=== PATIENT | male | born 1960 | race Caucasian/White ===

== ENCOUNTER → 2017-01-30 | Outpatient (CLI) | payer OTHER ==
[~2017-01-30] MED LIST: ASPI-664 PO; CLOP75TA27 PO
--- NOTE | 2017-01-30 18:07 | RADRPT ---
PROCEDURE: XR Right hip and pelvis. CLINICAL INDICATION: Right hip pain. Pelvic pain. TECHNIQUE: Two views. Frontal pelvis and lateral right hip. COMPARISON: No prior studies are available for comparison. FINDINGS: There is no fracture or dislocation. The soft tissues are normal. There are degenerative changes of the right hip with joint space narrowing, osteophytes, and subarti cular sclerosis. There is probable right femoral head avascular necrosis with sclerosis of the supe rior femoral head and a probable subchondral fracture. The left hip is grossly normal. There is no lytic or blastic lesion. The upper pelvis is not completely included on the image. IMPRESSION: 1. Moderate degenerative changes of the right hip. 2. Probable right femoral head avascular necrosis with sclerosis of the superior femoral head and p robable subchondral fracture. 3. Grossly normal appearance of the left hip and pelvis. RPTAT: QQ .Elvis Ontiveros MD, Date Time Electronically viewed and signed by .Elvis Ontiveros MD, on 01/30/2017 18:06 .R/
--- NOTE | 2017-02-11 05:01 | HKNOTE ---
DATE OF SERVICE: 01/30/2017 MAIN COMPLAINT: Pain in the right hip. HISTORY OF MAIN COMPLAINT: The patient is a 56-year-old male, who complains of pain in his right groin. He has had the pain for about four years. The problem seems to have started when he jumped off the back of a truck four years ago. He has seen three different physicians for this problem (None orthopedic), who thought the pain was coming from his back. Finally, he was diagnosed at [facility] as having osteonecrosis of his right hip. He was seen in the emergency room and evaluated for his right hip and lower back. He was given a prescription for [place] on 01/13/2017. He is referred for further evaluation and treatment. The patient complains the pain is mainly in the right groin, but he also has some pain in the lower back and in the right leg. Pain is described as mostly severe but occasionally moderate. The pain has been particularly severe this past six months. The pain is aggravated by walking, weightbearing and stair climbing. He does get rest pain and night pain. His pain is aggravated by walking, weightbearing and stair climbing. He does get rest pain and night pain. He gets back pain and he also gets numbness and tingling in the right leg. On a level surface, he can walk no more than 200 yards without stopping and using a walker. He limps some of the time. He does not have a shoe lift. He can clip his toenails and tie his shoelaces. PAST ORTHOPEDIC HISTORY: Orthopedic operations: None. PRIOR CORTISONE INTAKE: Prior cortisone intake: None. Importantly, the patient does not have a history of cortisone intake or use. Note also that he is "not heavy on alcohol." He takes 1-2 drinks a month. OTHER JOINT PROBLEMS: Other joint problems: None. BLOOD TESTS FOR ARTHRITIS: None. PRIOR INJURIES TO HIPS OR KNEES: The patient had a conveyer belt injury (no date given) when he injured his right foot. WORK STATUS: The patient's work involves heavy lifting, working with heavy tools, and multiple other activities which require fairly severe effort. Noted the patient was laid off from his work 8 months ago. PAST MEDICAL HISTORY: 1. Hypertension. 2. "Heart problems." 3. History of a gastric bleed in which he was given two units of blood. (1 year ago). 4. Hypercholesterolemia. PAST SURGICAL HISTORY: Negative. ALLERGIES: SULFA. MEDICATIONS: 1. Lipitor. 2. Cozaar. 3. Toprol XL. 4. Niacin. 5. Protonix. PHYSICAL EXAMINATION: GENERAL: The patient is a fairly youthful, 56-year-old male, quite markedly overweight. VITAL SIGNS: Vital signs: Height 6 foot 1 inch, weight 169 pounds. Blood pressure 150/110, temperature 98.7. EXTREMITIES: The patient walks without any support but he has quite a severe antalgic gait. NEUROLOGICAL: Deep tendon reflexes are symmetrical. Straight leg raise test is negative bilaterally at 80 degrees. ORTHOPEDIC EXAMINATION: Examination of the right hip: Range of motion is markedly limited. Flexion is 100 degrees. External rotation. Approximately 25 degrees and causes him severe groin pain. Internal rotation 0 degrees, abduction 20 degrees, adduction 20 degrees. Severe pain at all limits of motion. Examination of the left hip: Full range of motion without pain and without tenderness anywhere around the hip. Knee examination: Both knees are clinically normal. IMAGING: Plain x-rays of the right hip obtained on 01/13/2017 were reviewed. The right hip shows classic osteonecrosis of the femoral head with a wedge of necrosis and partial collapse of the femoral head. Some secondary osteoarthritic changes are noted. Imaging of the left hip joint shows normal femoral head. DIAGNOSIS: 1. Severe symptomatic osteonecrosis of the right hip. 2. Symptoms of right-sided sciatica. 3. History of gastric bleed and transfusion. 4. Hypertension. 5. Possibly other heart problems. 6. ALLERGIC TO SULFA. MANAGEMENT: The patient was advised that if he would definitely need to undergo a right hip replacement in the fairly near future. No harm would come to him from delaying by a few months if he has to, but the sooner he does the surgery, the better. The surgery of total hip replacement was discussed with him in a fair amount of detail including details about the anterior hip approach, possible postoperative complications, the technique of performing the operation, the hospital stay, and post hospital care. The patient is given a copy of my booklet, "Hip arthritis and hip replacement surgery", and was referred to my web site, "[email or web address]". The patient will call when he is ready to proceed with hip replacement surgery. Footnote: The patient is going to have a spine consultation next week with Dr. Vernon Lebron. The patient will call when he is ready to proceed with surgery. He is given a prescription for tramadol 50 mg 3 times a day. Dictated By: Red Allison MD /rowdy/jimmy /Document#: [id number]
== END | disposition home or self-care (01) ==
LOC: HKI 15:25
DX: M87.850 Other osteonecrosis, pelvis (principal); I10 Essential (primary) hypertension; M54.31 Sciatica, right side; Z88.2 Allergy status to sulfonamides
CPT/HCPCS: 73502; Z7500; G0463

== ENCOUNTER → 2017-04-03 | Outpatient (CLI) | payer OTHER ==
--- NOTE | 2017-04-04 07:46 | HKNOTE ---
DATE OF SERVICE: 04/03/2017 CHIEF COMPLAINT: Right groin pain. HISTORY OF PRESENT ILLNESS: The patient is a 57-year-old male, who is complaining of severe pain in the right groin radiating to the right knee. The pain is constant. It has been worsening over the last 2 years. He has difficulty performing his activities of daily living. He has difficulty performing his job. He has taken pain medications and physical therapy without any pain relief. He was scheduled to have a right total hip arthroplasty by Dr. Allison. He is taking [place] for pain control. He denies any back pain. Gait, antalgic gait. No use of assistive devices. Right hip flexion 0-0 to 90 degrees of flexion, 30 degrees of external rotation, 0 degrees of internal rotation, abduction of 20 degrees. Limitation of pain in all motions. Examination of left hip full range of motion without pain. Knee exam, both knees are clinically normal. X-rays of right hip: Two views of the right hip demonstrate osteonecrosis of the femoral head with collapse. There is secondary degenerative changes. IMPRESSION: The patient is a 57-year-old male with right hip osteonecrosis. PLAN: Patient would like to proceed with surgical intervention. He has failed nonoperative management. He will be scheduled for a right anterior total hip arthroplasty. He will return prior to surgery for consent. He will require preoperative clearance. Dictated By: Jose Melton MD /rowdy/shaheen /Document#: [id number]
== END | disposition home or self-care (01) ==
LOC: HKI 13:49
PROVIDERS: ATTEND Orthopaedic Surgery Adult Reconstructive Orthopaedic Surgery
DX: M87.850 Other osteonecrosis, pelvis (principal)
CPT/HCPCS: G0463

== ENCOUNTER → 2017-04-21 | Outpatient (CLI) | payer OTHER ==
--- NOTE | 2017-04-22 07:11 | HKNOTE ---
DATE OF SERVICE: 04/21/2017 CHIEF COMPLAINT: Right groin pain. HISTORY OF PRESENT ILLNESS: This is a 57-year-old male with right hip avascular necrosis who is riccardo eduled to undergo right total hip arthroplasty on 05/07/2017. He is here for an evaluation. He sta ivet that he continues to have pain in the right groin radiating to the knee. He has difficulty ambu lating and performing his activities of daily living. He is also having pain in his low back. He i s scheduled to have lumbar epidural injection. He has no other complaints. GAIT: Antalgic gait. No use of assistive device. RIGHT HIP EXAMINATION: 0 to 80 degrees range of motion, 30 degrees of external rotation, 5 degrees of internal rotation, positive Stinchfield, positive Ambrosio's, positive straight leg raise. X-RAYS RIGHT HIP: Two views of the right hip demonstrate AVN of the femoral head. There is minimal collapse. There is also degenerative changes. IMPRESSION: A 57-year-old male with right hip avascular necrosis with degenerative changes. PLAN: He would like to proceed with right total hip arthroplasty on 05/07/2017. I discussed the ri sks with surgery which include but are not limited to infection, deep venous thrombosis, pulmonary e mbolism, damage to neurovascular structures requiring repair, wound healing problems, leg length dis crepancy, fracture, loosening of prosthesis, need for revision surgery, wear of prosthesis, heart at tack, stroke, need for blood transfusion and even . I also advised him to not have the epidura l injection prior to his surgery. He will follow up on 05/06/2017 for preoperative evaluation. Dictated By: BARBIE ELMORE/ELEONORA Conf#: [id number] DID#: [id number]
== END | disposition home or self-care (01) ==
LOC: HKI 10:43
PROVIDERS: ATTEND Orthopaedic Surgery Adult Reconstructive Orthopaedic Surgery
DX: M87.850 Other osteonecrosis, pelvis (principal); M54.5 Low back pain
CPT/HCPCS: G0463

== ENCOUNTER → 2017-09-22 | Outpatient (CLI) | END | disposition home or self-care (01) ==

== ENCOUNTER 2017-09-24 07:22 | Inpatient (IN) | END 2017-09-26 17:10 | disposition home health service (06) | DRG 470 ==

== ENCOUNTER → 2017-10-10 | Outpatient (CLI) | END | disposition home or self-care (01) ==

== ENCOUNTER → 2017-11-04 | Outpatient (CLI) | END | disposition home or self-care (01) ==

== ENCOUNTER → 2017-12-26 | Outpatient (CLI) | END | disposition home or self-care (01) ==

== ENCOUNTER → 2018-03-27 | Outpatient (CLI) | END | disposition home or self-care (01) ==

== ENCOUNTER 2018-11-04 09:46 | Inpatient (IN) | payer OTHER ==
--- NOTE | 2018-11-03 20:46 | PREOPHP ---
DATE OF ADMISSION: 11/04/2018 HISTORY OF PRESENT ILLNESS: The patient is a 58-year-old male who was originally seen in the office for evaluation of back pain, hip pain and leg pain. The patient was diagnosed with lumbar 5 sacral 1 spondylolisthesis with a mechanical low back pain. He received physical therapy. He received conse rvative management had lumbar epidural injections as well as pain management. Unfortunately, the pat alyssa's condition did not improve. He is having worsening back pain, worsening leg pain. The patient is going on something more definitive to be done. Prior to pain, he has failed nonsurgical manageme nt. Now, he wants to try surgery. Surgical option was discussed with the patient in great detail wi th lumbar 5 sacral 1 laminectomy with possible interbody fusion, posterolateral fusion and possible p edicle screw instrumentation. The patient understands and wants to proceed with surgical interventio n as soon as possible. PAST MEDICAL HISTORY: Per chart. SURGICAL HISTORY: Per chart. SOCIAL HISTORY: Denies use of drugs, alcohol, tobacco. ALLERGIES: PER CHART. MEDICATIONS: Taken at home per chart. FAMILY HISTORY: Unremarkable. REVIEW OF SYSTEMS: Additional 10-point review of system was conducted. Pertinent positives stated. PHYSICAL EXAMINATION: GENERAL: The patient is awake, alert, oriented, follows commands. HEENT: Unremarkable. PULMONARY: No dyspnea. No tachypnea. CARDIOVASCULAR: No JVD. EXTREMITIES: No pedal edema. ABDOMEN: Soft. No guarding. NEUROLOGIC: Awake, alert, and oriented, follows commands. Has good strength in the upper extremitie s. Lower extremity examination. Flexion, extension of the lumbar spine causes significant low back discomfort. He is able to move both sides equally, but overall strength is about 4/5 in iliopsoas, q uads with anterior tibialis. IMAGING FINDINGS: MRI of the lumbar spine shows lumbar 5 sacral 1 spondylolisthesis with spondylosis . IMPRESSION: 1. Lumbar spondylolisthesis with spondylosis. 2. Mechanical low back pain. RECOMMENDATION: For patient to proceed with surgical intervention with lumbar 5 sacral 1 laminectomy , possible interbody fusion, posterolateral fusion and pedicle screw instrumentation. The procedure was explained to the patient in great detail. Complications explained including infection, bleeding, permanent nerve damage, stroke, heart attack, complications with anesthesia. The patient understand s and wants to proceed with surgical intervention. He will be admitted to the hospital, thereafter, for further care and management. Dictated By: MANNY LYONS/ELEONORA Conf#: [id number] DID#: [id number]
[~2018-11-04] VITALS: Ht 185.4 cm; Wt 126.0 kg
[2018-11-04] VITALS (14 sets, daily range): BP systolic 99–139; BP diastolic 55–95; PULSE 66–88; RESP 10–20; Ht 185.4 cm; Wt 126.0 kg
[~2018-11-04 09:46] MED LIST changes: +AMLO-218 PO; -ASPI-664 PO; +ATOR-2 PO; -CLOP75TA27 PO; +CYCL10TA7 PO; +HYDR-4011 PO; +LOSA100T3 PO; +METO-336 PO; +PANT40TA3 PO
[2018-11-04] MEDS ORDERED: HYDR-4012 PO (10:20)
[2018-11-04] MEDS ORDERED: THROMBIN (BOVINE) 5,000 UNIT VIAL TP ONE ×2 (10:59→12:08)
[2018-11-04] MEDS ORDERED: LIDOCAINE 1%/EPI (1:100,000) (MDV) 20 ML ONE (10:59)
[2018-11-04] MEDS ORDERED: GELATIN SIZE 100 SPONGE ONE (10:59)
[2018-11-04] MEDS ORDERED: POLYMYXIN/BACITRACIN 1L IRRIG ONE (11:00)
--- NOTE | 2018-11-04 11:25 | PREAC ---
Date/Time of Note Date/Time of Note DATE: 11/04/18 TIME: 11:21 Anesthesia Eval and Record Evaluation Time Pre-Procedure Interview DATE: 11/04/18 TIME: 11:21 Age 58 Sex male NPO: 8 hrs Preoperative diagnosis L5-S1 spondylolisthesis Planned procedure L5-S1 laminectomy Past Medical History Past Medical History: Includes Cardio: HTN, Dyslipidemia, NV (x2, s/p cardiac stents 7 years ago, off ASA 81 m g for 1 week now), CAD, PTCA/Stent Pulm: Smoking Hx (7-10 cigs per day since age 21 y/o), Sleep Apnea (but does not have CPAP machine yet) Neuro: Other (chronic back pain, takes [place] 6 pills per day everyday for 2 months now) Musculoskeletal: Osteoarthritis (s/p R BARAK) GI: Obesity, Other (hx gastric ulcer s/p PRBC transfusion in the past) Surgery & Anesthesia Issues No known issue Meds Anticoagulation: No Beta Alexandro within 24 hr: Yes Reported Medications Hydrocodone/Acetaminophen ([place] 7.5-325 Tablet) 1 Each Tablet, 1-2 EACH PO Q6 PRN for PAIN, TAB 11/04/18 Amlodipine Besylate* (Norvasc*) 10 Mg Tablet, 10 MG PO DAILY, TAB 09/23/17 Metoprolol Succinate* (Toprol XL*) 100 Mg Tab.sr.24h, 100 MG PO QAM, #30 TAB 09/23/17 Losartan Potassium* (Cozaar*) 100 Mg Tablet, 100 MG PO QAM, #30 TAB 09/23/17 Pantoprazole* (Protonix*) 40 Mg Tablet.dr, 40 MG PO DAILY, TAB 09/23/17 Atorvastatin* (Atorvastatin*) 80 Mg Tablet, 80 MG PO QHS, #30 TAB 09/23/17 Discontinued Reported Medications Hydrocodone/Acetaminophen ([place] 5-325 Tablet) 1 Each Tablet, 1 EACH PO DAILY PRN for SEVERE PAIN LEVEL 7-10, TAB 09/23/17 Cyclobenzaprine Hcl* (Cyclobenzaprine Hcl*) 10 Mg Tablet, 10 MG PO QHS, #90 TAB 09/23/17 Meds reviewed: Yes Allergies Coded Allergies: Sulfa (Sulfonamide Antibiotics) (Verified Allergy, Unknown, 11/04/18) Allergies Reviewed: Yes Labs/Studies Labs Reviewed: Reviewed by anesthesiologist test: N/A Studies: ECG, CXR, Other (Clearance from Dr Taylor (school age teacher) noted. Stating EF 60% on the note. ) Pre-procedure Exam Last vitals Vital Signs Date Temp Pulse Resp B/P (MAP) Pulse Ox O2 O2 Flow FiO2 Time Delivery Rate 11/04/18 96.7 88 16 139/95 95 Room Air 10:51 (110) Airway: Adequate mouth opening, Adequate thyromental dist Mallampati: Mallampati II (thick neck) Teeth: Normal (no loose teeth per patient ) Lung: Normal Heart: Normal ASA Physical Status ASA physical status: 3 Emergency: None Planned Anesthetic General/MAC: ETT, A Line Pre-operative Attestations Prior to commencing anesthesia and surgery, the patient was re-evaluated, there was verification of: *The patient's identity *The results of appropriate recent lab work and preoperative vital signs *The above evaluation not changing prior to induction *Anesthetic plan, risk benefits, alternative and complications discussed with patient/family; questions answered; patient/family understands, accepts and wishes to proceed. TITI CAMARGO November 04, 2018 11:25
[2018-11-04] MEDS ORDERED: SUCCINYLCHOLINE CHLORIDE 100 MG/5 ML SYG IV ONE (12:27)
[2018-11-04] MEDS ORDERED: PROPOFOL 20 ML ONE (12:27)
[2018-11-04] MEDS ORDERED: ETOMIDATE 20 MG INJ ONE (12:27)
[2018-11-04] MEDS ORDERED: MIDAZOLAM 1 MG/ML 2 ML INJ ONE (12:27)
[2018-11-04] MEDS ORDERED: METOCLOPRAMIDE 10 MG INJ ONE (12:28)
[2018-11-04] MEDS ORDERED: DEXAMETHASONE 4 MG/ML 5 ML INJ ONE (12:28)
[2018-11-04] MEDS ORDERED: niCARdipine 50 MG in SOD CHLORIDE 0.9% 480 ML IV SCH (12:30)
[2018-11-04] MEDS ORDERED: ONDANSETRON 4 MG INJ IV PRN ×2 (12:30→15:30)
[2018-11-04] MEDS ORDERED: HYDROCODONE/APAP (5/325) TAB PO PRN (12:30)
[2018-11-04] MEDS ORDERED: FENTAnyl 50 MCG/ML VIAL ONE (12:31)
[2018-11-04] MEDS ORDERED: EPHEDrine 25 MG/5 ML SYG ONE ×2 (13:04→14:09)
[2018-11-04] MEDS ORDERED: ROCURONIUM 50 MG INJ ONE ×2 (13:04→14:09)
[2018-11-04] MEDS ORDERED: CEFAZOLIN 1 GM INJ ONE (13:04)
[2018-11-04] MEDS ORDERED: CEFAZOLIN 1 GM/50 ML (PMX) 50 ML IVPB SCH (14:00)
[2018-11-04] MEDS ORDERED: PHENYLephrine (100 MCG/ML) 10ML SYG ONE (14:09)
[2018-11-04] MEDS ORDERED: MEPERIDINE 25 MG INJ ONE (15:26)
[2018-11-04] MEDS ORDERED: MEPERIDINE 25 MG INJ IV PRN (15:30)
[2018-11-04] MEDS ORDERED: KETOROLAC 15 MG INJ IV PRN (15:30)
[2018-11-04] MEDS ORDERED: morphine (1 MG/ML) 10ML SYRINGE IV PRN (15:30)
[2018-11-04] MEDS ORDERED: MIDAZOLAM 1 MG/ML 2 ML INJ IV PRN (15:30)
[2018-11-04] MEDS ORDERED: hydrALAzine 20 MG INJ IV PRN (15:30)
[2018-11-04] MEDS ORDERED: ALBUTEROL 0.083% (NEB) 2.5 MG/3 ML AMP HHN PRN (15:30)
[2018-11-04] MEDS ORDERED: ALBUMIN HUMAN 5% 250 ML IV PRN (15:30)
[2018-11-04] MEDS ORDERED: FENTAnyl 50 MCG/ML VIAL IV PRN ×2 (15:30)
[2018-11-04] MEDS ORDERED: LABETALOL HCL 20MG INJ IV PRN (15:30)
[2018-11-04] MEDS ORDERED: DIPHENHYDRAMINE 50 MG INJ IV PRN (15:30)
[2018-11-04] MEDS ORDERED: EPHEDrine SULFATE 50 MG/5 ML SYG IV PRN (15:30)
[2018-11-04] MEDS ORDERED: OXYCODONE/ACETAMINOPHEN (5/325) TAB PO PRN ×2 (15:30)
[2018-11-04] MEDS ORDERED: LEVALBUTEROL (NEB) 1.25 MG/0.5 ML AMP HHN PRN (15:30)
[2018-11-04] MEDS ORDERED: LEVALBUTEROL (NEB) 0.63 MG/3 ML AMP HHN PRN (15:30)
[2018-11-04] MEDS ORDERED: HYDROmorphONE 1 MG/5 ML IV SYRINGE IV PRN ×3 (15:30)
[2018-11-04] MEDS ORDERED: LACTATED RINGER'S 1,000 ML IV SCH (15:30)
[2018-11-04] MEDS ORDERED: TRIMETHOBENZAMIDE 100 MG/ML VIAL IM PRN (15:30)
[2018-11-04] MEDS ORDERED: METOCLOPRAMIDE 10 MG INJ IV PRN (15:30)
[2018-11-04] MEDS: FENTAnyl 50 MCG/ML VIAL IV PRN ×2 (15:42→16:09)
[2018-11-04] MEDS: DEXTROSE 5%-LR 1,000 ML IV SCH ×3 (17:35→23:59)
[2018-11-04] MEDS: morphine 4 MG/ML VIAL IV PRN ×3 (17:35→23:55)
[2018-11-04] MEDS: CEFAZOLIN 1 GM/50 ML (PMX) 50 ML IVPB SCH (20:44)
[2018-11-04] MEDS: HYDROCODONE/APAP (5/325) TAB PO PRN (22:56)
[2018-11-04] MEDS ORDERED: HYDROCODONE/APAP (5/325) TAB NGT PRN (23:00)
[2018-11-05] VITALS: BP 108/57; PULSE 89; RESP 20
--- NOTE | 2018-11-05 01:12 | HP ---
DATE OF ADMISSION: 11/04/2018 CHIEF COMPLAINT AND HISTORY OF PRESENT ILLNESS: The patient is a 58-year-old gentleman with a histor y of hypertension, dyslipidemia, osteoarthritis right hip, status post right total hip arthroplasty b ack in 09/2017, possible obstructive sleep apnea, being followed by sleep specialist. The patient wa s seen by Dr. Sepulveda as an outpatient for back pain, hip pain and leg pain. The patient underwent M RI of the LS spine and was diagnosed with L5-S1 spondylolisthesis with mechanical low back pain. The patient failed conservative treatment including physical therapy and lumbar epidural injection as we ll as pain management. Unfortunately, the patient continued to remain symptomatic and was brought in to hospital today and underwent L5-S1 laminectomy, possible interbody fusion, posterolateral fusion a nd pedicle screw instrumentation. The patient has significant pain. The patient is being admitted f or further management. REVIEW OF SYSTEMS: The patient denies any history of chest pain or shortness of breath. No history of headache, dizziness, syncope. No history of abdominal pain. No history of leg edema. No history of focal weakness. No history of recent fever or chills. No history of chest congestion. Other th an postoperative pain, rest of review of systems unremarkable. PAST MEDICAL HISTORY: As stated above. SOCIAL HISTORY: Ex-smoker. No significant alcohol abuse. ALLERGIES: SULFA. FAMILY HISTORY: Noncontributory. PHYSICAL EXAMINATION: GENERAL: The patient is awake, alert, fairly oriented. VITAL SIGNS: Temperature 98.9, pulse 88, respirations 20, blood pressure 101/56, O2 saturation 93% o n 2 L nasal cannula. HEENT: No eye discharge or redness. Conjunctivae and lids are normal. Oropharynx is clear. NECK: No mass. CHEST: Fairly clear. CARDIOVASCULAR: S1, S2 normal. ABDOMEN: Soft, nondistended. EXTREMITIES: No edema. Pedal pulses palpable. SKIN: Without acute rash. NEUROLOGIC: The patient is awake, alert, fairly oriented with no gross focal deficit. Detailed exam ination was deferred due to recent back surgery. LABORATORY DATA: Pending. IMPRESSION: 1. Lumbar spondylolisthesis with spondylosis and mechanical lower back pain status post surgery as d escribed above. 2. Hypertension. 3. Dyslipidemia. 4. Gastroesophageal reflux disease. 5. Possible obstructive sleep apnea syndrome. PLAN: The patient admitted on medical floor. The patient will be started on a regular diet and will be started on IV fluids, IV cefazolin as per protocol. For pain control, the patient will be given [place] and intravenous opiates. We will continue Norvasc, Lipitor, Cozaar, metoprolol and Protonix. We will use SCD for DVT prophylaxis. We will order followup labs. Further recommendation will depen d on patient's hospital course. We will continue postop care as per Dr. Sepulveda who performed the john rgery today. We will continue to follow. Dictated By: TANIA BELTRAN MD AB/NTS Conf#: [id number] DID#: [id number] CC: MANNY SEPULVEDA MD;*EndCC*
[2018-11-05] MEDS: HYDROCODONE/APAP (5/325) TAB PO PRN ×4 (03:09→19:24)
[2018-11-05] MEDS: morphine 4 MG/ML VIAL IV PRN ×3 (04:10→15:38)
[2018-11-05] MEDS: CEFAZOLIN 1 GM/50 ML (PMX) 50 ML IVPB SCH ×3 (04:17→20:52)
--- NOTE | 2018-11-05 08:00 | PAC ---
Date/Time of Note Date/Time of Note DATE: 11/05/18 TIME: 07:59 Post-Anesthesia Notes Post-Anesthesia Note Last documented vital signs Vital Signs Date Temp Pulse Resp B/P (MAP) Pulse Ox O2 O2 Flow FiO2 Time Delivery Rate 11/05/18 98.0 89 20 108/57 91 00:00 (74) 11/04/18 Nasal 2.0 19:20 Cannula Activity: WNL Respiratory function: WNL Cardiovascular function: WNL Mental status: Baseline Pain reasonably controlled: Yes Hydration appropriate: Yes Nausea/Vomiting absent: No LALITO FREGOSO MD November 05, 2018 08:00
[2018-11-05 08:15] VITALS: BP 106/58; PULSE 69; RESP 16
[2018-11-05] MEDS: PANTOPRAZOLE (EC) 40 MG TAB PO SCH (08:20)
[2018-11-05] MEDS: AMLODIPINE 10 MG TAB PO SCH (08:22)
[2018-11-05] MEDS: LOSARTAN 50 MG TAB PO SCH (08:22)
[2018-11-05] MEDS: METOPROLOL (XL) 100 MG TAB PO SCH (08:23)
[2018-11-05] MEDS: DEXTROSE 5%-LR 1,000 ML IV SCH ×3 (08:23→22:38)
--- NOTE | 2018-11-05 13:05 | CONS ---
Assessment/Plan Assessment/Plan Assessment/Plan (Daily) seen and examined awake alert follows moves all lumbar 5/s1 lamiectomy with fusion/ pedicle screw instrumentation start pt/ot advance diet as tolerated Consultation Date/Type/Reason Admit Date/Time November 04, 2018 at 12:30 Initial Consult Date Date/Time of Note DATE: 11/05/18 TIME: 13:04 Exam/Review of Systems Exam Vitals Vital Signs Date Temp Pulse Resp B/P (MAP) Pulse Ox O2 O2 Flow FiO2 Time Delivery Rate 11/05/18 Nasal 2.0 09:14 Cannula 11/05/18 94 08:20 11/05/18 98.7 69 16 106/58 08:15 (74) Intake and Output 11/04/18 11/04/18 11/05/18 1515:00 23:00 07:00 IntakeIntake Total 1700 ml 410 ml 1700 ml OutputOutput Total 170 ml 52 ml 60 ml BalanceBalance 1530 ml 358 ml 1640 ml Results Result Diagram: 11/05/18 0431 11/05/18 0431 Results 24hrs Laboratory Tests Test 11/05/18 04:31 11/05/18 07:17 White Blood Count 18.9 #H Red Blood Count 4.45 #L Hemoglobin 13.8 #L Hematocrit 39.1 #L Mean Corpuscular Volume 87.9 Mean Corpuscular Hemoglobin 31.0 Mean Corpuscular Hemoglobin Concent 35.3 Red Cell Distribution Width 12.7 Platelet Count 216 # Mean Platelet Volume 10.2 Immature Granulocytes % 0.600 H Neutrophils % 84.5 H Lymphocytes % 7.1 L Monocytes % 7.7 Eosinophils % 0.0 Basophils % 0.1 Nucleated Red Blood Cells % 0.0 Immature Granulocytes # 0.110 H Neutrophils # 16.0 H Lymphocytes # 1.4 Monocytes # 1.5 H Eosinophils # 0.0 Basophils # 0.0 Nucleated Red Blood Cells # 0.0 Sodium Level 140 Potassium Level 4.0 Chloride Level 104 Carbon Dioxide Level 25 Anion Gap 11 Blood Urea Nitrogen 16 Creatinine 0.92 Est Glomerular Filtrat Rate mL/min > 60 Glucose Level 195 Calcium Level 9.2 Total Bilirubin 0.7 Direct Bilirubin 0.00 Indirect Bilirubin 0.7 Aspartate Amino Transf (AST/SGOT) 29 Alanine Aminotransferase (ALT/SGPT) 34 Alkaline Phosphatase 31 L Total Protein 6.2 Albumin 3.6 Globulin 2.60 Albumin/Globulin Ratio 1.38 Lab Scanned Report REFERENCE LAB Medications Medication Current Medications Dextrose/Lactated Ringer's 1,000 ml @ 150 mls/hr Q6H40M IV Last administered o n 11/05/18at 08:23; Admin Dose 150 MLS/HR; Start 11/04/18 at 12:30 Nicardipine HCl 50 mg/Sodium Chloride 500 ml @ 50 mls/hr TITRATE IV ; Start 11/04/18 at 12:30 Ondansetron HCl (Zofran Inj) 4 mg Q6H PRN IV NAUSEA AND/OR VOMITING; Start 11/04/18 at 12:30 Acetaminophen/ Hydrocodone Bitart ([place] (5/325)) 1 tab Q4H PRN PO MODERATE PAIN LEVEL 4-6 Last administered on 11/04/18at 19:15; Admin Dose 1 TAB; Start 11/04/18 at 12:30 Cefazolin Sodium 50 ml @ 100 mls/hr Q8H IVPB Last administered on 11/05/18at 13 :01; Admin Dose 100 MLS/HR; Start 11/04/18 at 21:00; Stop 11/06/18 at 20:59 Amlodipine Besylate (Norvasc) 10 mg DAILY PO ; Start 11/05/18 at 09:00 Atorvastatin Calcium (Lipitor) 80 mg QHS PO ; Start 11/05/18 at 21:00 Losartan Potassium (Cozaar) 100 mg QAM PO ; Start 11/05/18 at 09:00 Metoprolol Succinate (Toprol Xl) 100 mg QAM PO ; Start 11/05/18 at 09:00 Pantoprazole (Protonix Tab) 40 mg DAILY PO Last administered on 11/05/18at 08:20; Admin Dose 40 MG; Start 11/05/18 at 09:00 Acetaminophen (Tylenol Tab) 500 mg Q4H PRN PO MILD PAIN(1-3)OR ELEVATED TEMP; Start 11/04/18 at 22:30 Morphine Sulfate (morphine) 4 mg Q3H PRN IV SEVERE PAIN LEVEL 7-10 Last administered on 11/05/18at 11:23; Admin Dose 4 MG; Start 11/05/18 at 00:30 Acetaminophen/ Hydrocodone Bitart ([place] (5/325)) 2 tab Q4H PRN PO MODERATE PA IN LEVEL 4-6 Last administered on 11/05/18at 13:01; Admin Dose 2 TAB; Start 11/04/18 at 23:00 JUANA SALINAS PA-C November 05, 2018 13:05
[2018-11-05 16:55] VITALS: BP 125/75; PULSE 69; RESP 18
[2018-11-05 19:40] VITALS: BP 124/60; PULSE 88; RESP 20
[2018-11-05] MEDS: ATORVASTATIN 80 MG TAB PO SCH (20:52)
--- NOTE | 2018-11-05 23:39 | PN ---
Date/Time of Note Date/Time of Note DATE: 11/05/18 TIME: 23:32 Assessment/Plan VTE Prophylaxis Risk score (from Nsg)>0 risk: 7 SCD applied (from Nsg): Yes Lines/Catheters IV Catheter Type (from Nrsg): Peripheral IV Urinary Cath still in place: Yes Reason Cath still needed: urinary retention Assessment/Plan Assessment/Plan - Lumbar spondylolisthesis with spondylosis and mechanical lower back pain - status post surgery as described above. - continue postop care per neuro sx- Dr. Lilly - regular diet - IV fluids - IV cefazolin - [place] and MSO4 for pain control - Hypertension. -continue Norvasc, Cozaar, metoprolol - Dyslipidemia on Lipitor, - Gastroesophageal reflux disease. - Protonix. - Possible obstructive sleep apnea syndrome- no acute issues - SCD for DVT prophylaxis. Further recommendation will depend on patient's hospital course.We will continue to follow.Dw Dr Velazquez/staff. Result Diagram: 11/05/18 0431 11/05/18 0431 Results 24hrs Laboratory Tests Test 11/05/18 04:31 11/05/18 07:17 White Blood Count 18.9 #H Red Blood Count 4.45 #L Hemoglobin 13.8 #L Hematocrit 39.1 #L Mean Corpuscular Volume 87.9 Mean Corpuscular Hemoglobin 31.0 Mean Corpuscular Hemoglobin Concent 35.3 Red Cell Distribution Width 12.7 Platelet Count 216 # Mean Platelet Volume 10.2 Immature Granulocytes % 0.600 H Neutrophils % 84.5 H Lymphocytes % 7.1 L Monocytes % 7.7 Eosinophils % 0.0 Basophils % 0.1 Nucleated Red Blood Cells % 0.0 Immature Granulocytes # 0.110 H Neutrophils # 16.0 H Lymphocytes # 1.4 Monocytes # 1.5 H Eosinophils # 0.0 Basophils # 0.0 Nucleated Red Blood Cells # 0.0 Sodium Level 140 Potassium Level 4.0 Chloride Level 104 Carbon Dioxide Level 25 Anion Gap 11 Blood Urea Nitrogen 16 Creatinine 0.92 Est Glomerular Filtrat Rate mL/min > 60 Glucose Level 195 Calcium Level 9.2 Total Bilirubin 0.7 Direct Bilirubin 0.00 Indirect Bilirubin 0.7 Aspartate Amino Transf (AST/SGOT) 29 Alanine Aminotransferase (ALT/SGPT) 34 Alkaline Phosphatase 31 L Total Protein 6.2 Albumin 3.6 Globulin 2.60 Albumin/Globulin Ratio 1.38 Lab Scanned Report REFERENCE LAB Subjective 24 Hr Interval Summary Free Text/Dictation NAD efffective pain control Family at bed side- all Qs answered. Exam/Review of Systems Exam Vitals Vital Signs Date Temp Pulse Resp B/P (MAP) Pulse Ox O2 O2 Flow FiO2 Time Delivery Rate 11/05/18 98.6 88 20 124/60 94 Nasal 19:40 (81) Cannula 11/05/18 2.0 09:14 Intake and Output 11/04/18 11/04/18 11/05/18 1515:00 23:00 07:00 IntakeIntake Total 1700 ml 410 ml 1700 ml OutputOutput Total 170 ml 52 ml 60 ml BalanceBalance 1530 ml 358 ml 1640 ml Results Results 24hrs Laboratory Tests Test 11/05/18 04:31 11/05/18 07:17 White Blood Count 18.9 #H Red Blood Count 4.45 #L Hemoglobin 13.8 #L Hematocrit 39.1 #L Mean Corpuscular Volume 87.9 Mean Corpuscular Hemoglobin 31.0 Mean Corpuscular Hemoglobin Concent 35.3 Red Cell Distribution Width 12.7 Platelet Count 216 # Mean Platelet Volume 10.2 Immature Granulocytes % 0.600 H Neutrophils % 84.5 H Lymphocytes % 7.1 L Monocytes % 7.7 Eosinophils % 0.0 Basophils % 0.1 Nucleated Red Blood Cells % 0.0 Immature Granulocytes # 0.110 H Neutrophils # 16.0 H Lymphocytes # 1.4 Monocytes # 1.5 H Eosinophils # 0.0 Basophils # 0.0 Nucleated Red Blood Cells # 0.0 Sodium Level 140 Potassium Level 4.0 Chloride Level 104 Carbon Dioxide Level 25 Anion Gap 11 Blood Urea Nitrogen 16 Creatinine 0.92 Est Glomerular Filtrat Rate mL/min > 60 Glucose Level 195 Calcium Level 9.2 Total Bilirubin 0.7 Direct Bilirubin 0.00 Indirect Bilirubin 0.7 Aspartate Amino Transf (AST/SGOT) 29 Alanine Aminotransferase (ALT/SGPT) 34 Alkaline Phosphatase 31 L Total Protein 6.2 Albumin 3.6 Globulin 2.60 Albumin/Globulin Ratio 1.38 Lab Scanned Report REFERENCE LAB Medications Medication Current Medications Dextrose/Lactated Ringer's 1,000 ml @ 150 mls/hr Q6H40M IV Last administered on 11/05/18at 22:38; Admin Dose 150 MLS/HR; Start 11/04/18 at 12:30 Nicardipine HCl 50 mg/Sodium Chloride 500 ml @ 50 mls/hr TITRATE IV ; Start 11/04/18 at 12:30 Ondansetron HCl (Zofran Inj) 4 mg Q6H PRN IV NAUSEA AND/OR VOMITING; Start 11/04/18 at 12:30 Acetaminophen/ Hydrocodone Bitart ([place] (5/325)) 1 tab Q4H PRN PO MODERATE PAIN LEVEL 4-6 Last administered on 11/04/18at 19:15; Admin Dose 1 TAB; Start 11/04/18 at 12:30 Cefazolin Sodium 50 ml @ 100 mls/hr Q8H IVPB Last administered on 11/05/18 2 0:52; Admin Dose 100 MLS/HR; Start 11/04/18 at 21:00; Stop 11/06/18 at 20:59 Amlodipine Besylate (Norvasc) 10 mg DAILY PO ; Start 11/05/18 at 09:00 Atorvastatin Calcium (Lipitor) 80 mg QHS PO Last administered on 11/05/18at 20:52; Admin Dose 80 MG; Start 11/05/18 at 21:00 Losartan Potassium (Cozaar) 100 mg QAM PO ; Start 11/05/18 at 09:00 Metoprolol Succinate (Toprol Xl) 100 mg QAM PO ; Start 11/05/18 at 09:00 Pantoprazole (Protonix Tab) 40 mg DAILY PO Last administered on 11/05/18 08:20; Admin Dose 40 MG; Start 11/05/18 at 09:00 Acetaminophen (Tylenol Tab) 500 mg Q4H PRN PO MILD PAIN(1-3)OR ELEVATED TEMP; Start 11/04/18 at 22:30 Morphine Sulfate (morphine) 4 mg Q3H PRN IV SEVERE PAIN LEVEL 7-10 Last administered on 11/05/18at 15:38; Admin Dose 4 MG; Start 11/05/18 at 00:30 Acetaminophen/ Hydrocodone Bitart ([place] (5/325)) 2 tab Q4H PRN PO MODERATE PAIN LEVEL 4-6 Last administered on 11/05/18at 19:24; Admin Dose 2 TAB; Start 11/04/18 at 23:00 JOSIAH TRINIDAD November 05, 2018 23:39
[2018-11-06] MEDS: morphine 4 MG/ML VIAL IV PRN ×3 (00:01→07:39)
[2018-11-06 02:05] VITALS: BP 126/75; PULSE 85; RESP 20
[2018-11-06] MEDS: HYDROCODONE/APAP (5/325) TAB PO PRN ×2 (02:08→08:45)
[2018-11-06] MEDS: CEFAZOLIN 1 GM/50 ML (PMX) 50 ML IVPB SCH ×2 (04:03→12:31)
[2018-11-06] MEDS: DEXTROSE 5%-LR 1,000 ML IV SCH ×4 (04:30→17:50)
--- NOTE | 2018-11-06 05:48 | PN ---
Date/Time of Note Date/Time of Note DATE: 11/06/18 TIME: 05:47 Assessment/Plan VTE Prophylaxis Risk score (from Nsg)>0 risk: 7 SCD applied (from Nsg): Yes Lines/Catheters IV Catheter Type (from Nrsg): Peripheral IV Urinary Cath still in place: Yes Assessment/Plan Assessment/Plan - Lumbar spondylolisthesis with spondylosis and mechanical lower back pain - status post surgery as described above. - continue postop care per neuro sx- Dr. Lilly - regular diet - IV fluids - IV cefazolin - [place] and MSO4 for pain control - Hypertension. -continue Norvasc, Cozaar, metoprolol - Dyslipidemia on Lipitor, - Gastroesophageal reflux disease. - Protonix. - Possible obstructive sleep apnea syndrome- no acute issues - SCD for DVT prophylaxis. Further recommendation will depend on patient's hospital course.We will continue to follow.Dw Dr Velazquez/staff. Result Diagram: 11/06/18 0426 11/06/18 0426 Results 24hrs Laboratory Tests Test 11/05/18 07:17 11/06/18 04:26 Lab Scanned Report REFERENCE LAB White Blood Count 14.9 #H Red Blood Count 4.67 L Hemoglobin 14.4 Hematocrit 41.6 L Mean Corpuscular Volume 89.1 Mean Corpuscular Hemoglobin 30.8 Mean Corpuscular Hemoglobin Concent 34.6 Red Cell Distribution Width 12.9 Platelet Count 191 Mean Platelet Volume 10.1 Immature Granulocytes % 0.700 H Neutrophils % 62.5 Lymphocytes % 26.2 Monocytes % 9.7 Eosinophils % 0.5 Basophils % 0.4 Nucleated Red Blood Cells % 0.0 Immature Granulocytes # 0.110 H Neutrophils # 9.3 H Lymphocytes # 3.9 H Monocytes # 1.4 H Eosinophils # 0.1 Basophils # 0.1 Nucleated Red Blood Cells # 0.0 Sodium Level 141 Potassium Level 3.6 Chloride Level 103 Carbon Dioxide Level 31 Anion Gap 7 Blood Urea Nitrogen 13 Creatinine 0.74 Est Glomerular Filtrat Rate mL/min > 60 Glucose Level 150 Calcium Level 9.0 Subjective 24 Hr Interval Summary Free Text/Dictation - CO back pain; pain med effective afebrile Exam/Review of Systems Exam Vitals Vital Signs Date Temp Pulse Resp B/P (MAP) Pulse Ox O2 O2 Flow FiO2 Time Delivery Rate 11/06/18 98.5 85 20 126/75 94 Nasal 02:05 (92) Cannula 11/06/18 2.0 00:08 Intake and Output 11/05/18 11/05/18 11/06/18 1515:00 23:00 07:00 IntakeIntake Total 900 ml 1800 ml OutputOutput Total 2500 ml 1200 ml 40 ml BalanceBalance -1600 ml 600 ml -40 ml Results Results 24hrs Laboratory Tests Test 11/05/18 07:17 11/06/18 04:26 Lab Scanned Report REFERENCE LAB White Blood Count 14.9 #H Red Blood Count 4.67 L Hemoglobin 14.4 Hematocrit 41.6 L Mean Corpuscular Volume 89.1 Mean Corpuscular Hemoglobin 30.8 Mean Corpuscular Hemoglobin Concent 34.6 Red Cell Distribution Width 12.9 Platelet Count 191 Mean Platelet Volume 10.1 Immature Granulocytes % 0.700 H Neutrophils % 62.5 Lymphocytes % 26.2 Monocytes % 9.7 Eosinophils % 0.5 Basophils % 0.4 Nucleated Red Blood Cells % 0.0 Immature Granulocytes # 0.110 H Neutrophils # 9.3 H Lymphocytes # 3.9 H Monocytes # 1.4 H Eosinophils # 0.1 Basophils # 0.1 Nucleated Red Blood Cells # 0.0 Sodium Level 141 Potassium Level 3.6 Chloride Level 103 Carbon Dioxide Level 31 Anion Gap 7 Blood Urea Nitrogen 13 Creatinine 0.74 Est Glomerular Filtrat Rate mL/min > 60 Glucose Level 150 Calcium Level 9.0 Medications Medication Current Medications Dextrose/Lactated Ringer's 1,000 ml @ 150 mls/hr Q6H40M IV Last administered on 11/05/18at 22:38; Admin Dose 150 MLS/HR; Start 11/04/18 at 12:30 Nicardipine HCl 50 mg/Sodium Chloride 500 ml @ 50 mls/hr TITRATE IV ; Start 11/04/18 at 12:30 Ondansetron HCl (Zofran Inj) 4 mg Q6H PRN IV NAUSEA AND/OR VOMITING; Start 11/04/18 at 12:30 Acetaminophen/ Hydrocodone Bitart ([place] (5/325)) 1 tab Q4H PRN PO MODERATE PAIN LEVEL 4-6 Last administered on 11/04/18at 19:15; Admin Dose 1 TAB; Start 11/04/18 at 12:30 Cefazolin Sodium 50 ml @ 100 mls/hr Q8H IVPB Last administered on 11/06/18 04:03; Admin Dose 100 MLS/HR; Start 11/04/18 at 21:00; Stop 11/06/18 at 20:59 Amlodipine Besylate (Norvasc) 10 mg DAILY PO ; Start 11/05/18 at 09:00 Atorvastatin Calcium (Lipitor) 80 mg QHS PO Last administered on 11/05/18at 20:52; Admin Dose 80 MG; Start 11/05/18 at 21:00 Losartan Potassium (Cozaar) 100 mg QAM PO ; Start 11/05/18 at 09:00 Metoprolol Succinate (Toprol Xl) 100 mg QAM PO ; Start 11/05/18 at 09:00 Pantoprazole (Protonix Tab) 40 mg DAILY PO Last administered on 11/05/18at 08:20; Admin Dose 40 MG; Start 11/05/18 at 09:00 Acetaminophen (Tylenol Tab) 500 mg Q4H PRN PO MILD PAIN(1-3)OR ELEVATED TEMP; Start 11/04/18 at 22:30 Morphine Sulfate (morphine) 4 mg Q3H PRN IV SEVERE PAIN LEVEL 7-10 Last administered on 11/06/18at 04:03; Admin Dose 4 MG; Start 11/05/18 at 00:30 Acetaminophen/ Hydrocodone Bitart ([place] (5/325)) 2 tab Q4H PRN PO MODERATE PAIN LEVEL 4-6 Last administered on 11/06/18at 02:08; Admin Dose 2 TAB; Start 11/04/18 at 23:00 JOSIAH TRINIDAD November 06, 2018 05:48
[2018-11-06 07:24] VITALS: BP 129/62; PULSE 82; RESP 19
[2018-11-06] MEDS: LOSARTAN 50 MG TAB PO SCH (08:45)
[2018-11-06] MEDS: PANTOPRAZOLE (EC) 40 MG TAB PO SCH (08:46)
[2018-11-06] MEDS: METOPROLOL (XL) 100 MG TAB PO SCH (08:46)
[2018-11-06] MEDS: AMLODIPINE 10 MG TAB PO SCH (08:46)
[2018-11-06] MEDS: HYDROmorphONE 2 MG/ML SYG IV PRN ×6 (09:42→20:51)
--- NOTE | 2018-11-06 13:15 | CONS ---
Assessment/Plan Assessment/Plan Assessment/Plan (Daily) seen and examined awake alert follows moves all sens intact doing well keep hemovac another 24hrs. pt/ot Consultation Date/Type/Reason Admit Date/Time November 04, 2018 at 12:30 Initial Consult Date Date/Time of Note DATE: 11/06/18 TIME: 13:13 Exam/Review of Systems Exam Vitals Vital Signs Date Temp Pulse Resp B/P (MAP) Pulse Ox O2 O2 Flow FiO2 Time Delivery Rate 11/06/18 98.2 82 19 129/62 96 07:24 (84) 11/06/18 Nasal 02:05 Cannula 11/06/18 2.0 00:08 Intake and Output 11/05/18 11/05/18 11/06/18 1515:00 23:00 07:00 IntakeIntake Total 900 ml 2850 ml 1300 ml OutputOutput Total 2500 ml 1200 ml 3040 ml BalanceBalance -1600 ml 1650 ml -1740 ml Results Result Diagram: 11/06/18 0426 11/06/18 0426 Results 24hrs Laboratory Tests Test 11/06/18 04:26 White Blood Count 14.9 #H Red Blood Count 4.67 L Hemoglobin 14.4 Hematocrit 41.6 L Mean Corpuscular Volume 89.1 Mean Corpuscular Hemoglobin 30.8 Mean Corpuscular Hemoglobin Concent 34.6 Red Cell Distribution Width 12.9 Platelet Count 191 Mean Platelet Volume 10.1 Immature Granulocytes % 0.700 H Neutrophils % 62.5 Lymphocytes % 26.2 Monocytes % 9.7 Eosinophils % 0.5 Basophils % 0.4 Nucleated Red Blood Cells % 0.0 Immature Granulocytes # 0.110 H Neutrophils # 9.3 H Lymphocytes # 3.9 H Monocytes # 1.4 H Eosinophils # 0.1 Basophils # 0.1 Nucleated Red Blood Cells # 0.0 Sodium Level 141 Potassium Level 3.6 Chloride Level 103 Carbon Dioxide Level 31 Anion Gap 7 Blood Urea Nitrogen 13 Creatinine 0.74 Est Glomerular Filtrat Rate mL/min > 60 Glucose Level 150 Calcium Level 9.0 Medications Medication Current Medications Dextrose/Lactated Ringer's 1,000 ml @ 150 mls/hr Q6H40M IV Last administered on 11/06/18at 07:19; Admin Dose 150 MLS/HR; Start 11/04/18 at 12:30 Ondansetron HCl (Zofran Inj) 4 mg Q6H PRN IV NAUSEA AND/OR VOMITING; Start 11/04/18 at 12:30 Acetaminophen/ Hydrocodone Bitart ([place] (5/325)) 1 tab Q4H PRN PO MODERATE PAIN LEVEL 4-6 Last administered on 11/04/18 19:15; Admin Dose 1 TAB; Start 11/04/18 at 12:30 Cefazolin Sodium 50 ml @ 100 mls/hr Q8H IVPB Last administered on 11/06/18 12:31; Admin Dose 100 MLS/HR; Start 11/04/18 at 21:00; Stop 11/06/18 at 20:59 Amlodipine Besylate (Norvasc) 10 mg DAILY PO Last administered on 11/06/18 08:46; Admin Dose 10 MG; Start 11/05/18 at 09:00 Atorvastatin Calcium (Lipitor) 80 mg QHS PO Last administered on 11/05/18 20:52; Admin Dose 80 MG; Start 11/05/18 at 21:00 Losartan Potassium (Cozaar) 100 mg QAM PO Last administered on 11/06/18 08:45; Admin Dose 100 MG; Start 11/05/18 at 09:00 Metoprolol Succinate (Toprol Xl) 100 mg QAM PO Last administered on 11/06/18 08:46; Admin Dose 100 MG; Start 11/05/18 at 09:00 Pantoprazole (Protonix Tab) 40 mg DAILY PO Last administered on 11/06/18 08:46; Admin Dose 40 MG; Start 11/05/18 at 09:00 Acetaminophen (Tylenol Tab) 500 mg Q4H PRN PO MILD PAIN(1-3)OR ELEVATED TEMP; Start 11/04/18 at 22:30 Acetaminophen/ Hydrocodone Bitart ([place] (5/325)) 2 tab Q4H PRN PO MODERATE PAIN LEVEL 4-6 Last administered on 11/06/18 08:45; Admin Dose 2 TAB; Start 11/04/18 at 23:00 Hydromorphone HCl (Dilaudid) 2 mg Q2H PRN IV SEVERE PAIN LEVEL 7-10 Last administered on 11/06/18 12:31; Admin Dose 2 MG; Start 11/06/18 at 10:00 JUANA SALINAS PA-C November 06, 2018 13:15
[2018-11-06 19:15] VITALS: BP 111/67; PULSE 77; RESP 20
[2018-11-06] MEDS: ATORVASTATIN 80 MG TAB PO SCH (20:52)
[2018-11-07] MEDS: HYDROmorphONE 2 MG/ML SYG IV PRN ×7 (00:09→22:24)
[2018-11-07] MEDS: DEXTROSE 5%-LR 1,000 ML IV SCH ×2 (00:30→06:14)
[2018-11-07 02:00] VITALS: BP 125/69; PULSE 76; RESP 20
[2018-11-07 07:14] VITALS: BP 130/76; PULSE 81; RESP 15
[2018-11-07] MEDS: HYDROCODONE/APAP (5/325) TAB PO PRN (08:08)
--- NOTE | 2018-11-07 08:29 | CONS ---
Assessment/Plan Assessment/Plan Assessment/Plan (Daily) seen and examined awake alert follows moves all sens intact drain with minimal collection, dced cont pt/ot may go home if pain has been controlled Consultation Date/Type/Reason Admit Date/Time November 04, 2018 at 12:30 Initial Consult Date Date/Time of Note DATE: 11/07/18 TIME: 08:27 Exam/Review of Systems Exam Vitals Vital Signs Date Temp Pulse Resp B/P (MAP) Pulse Ox O2 O2 Flow FiO2 Time Delivery Rate 11/07/18 98.5 81 15 130/76 95 Room Air 07:14 (94) 11/06/18 2.0 00:08 Intake and Output 11/06/18 11/06/18 11/07/18 1515:00 23:00 07:00 IntakeIntake Total 50 ml 400 ml 550 ml OutputOutput Total 400 ml 840 ml 20 ml BalanceBalance -350 ml -440 ml 530 ml Results Result Diagram: 11/07/18 0425 11/07/18 0425 Results 24hrs Laboratory Tests Test 11/07/18 04:25 White Blood Count 13.3 H Red Blood Count 4.60 L Hemoglobin 14.3 Hematocrit 41.4 L Mean Corpuscular Volume 90.0 Mean Corpuscular Hemoglobin 31.1 Mean Corpuscular Hemoglobin Concent 34.5 Red Cell Distribution Width 12.8 Platelet Count 205 Mean Platelet Volume 10.0 Immature Granulocytes % 0.800 H Neutrophils % 66.7 Lymphocytes % 20.1 Monocytes % 9.2 Eosinophils % 2.6 Basophils % 0.6 Nucleated Red Blood Cells % 0.0 Immature Granulocytes # 0.100 H Neutrophils # 8.9 H Lymphocytes # 2.7 Monocytes # 1.2 H Eosinophils # 0.3 Basophils # 0.1 Nucleated Red Blood Cells # 0.0 Sodium Level 140 Potassium Level 3.8 Chloride Level 101 Carbon Dioxide Level 30 Anion Gap 9 Blood Urea Nitrogen 18 Creatinine 0.82 Est Glomerular Filtrat Rate mL/min > 60 Glucose Level 142 Calcium Level 9.2 Medications Medication Current Medications Dextrose/Lactated Ringer's 1,000 ml @ 150 mls/hr Q6H40M IV Last administered on 11/06/18at 07:19; Admin Dose 150 MLS/HR; Start 11/04/18 at 12:30 Ondansetron HCl (Zofran Inj) 4 mg Q6H PRN IV NAUSEA AND/OR VOMITING; Start 11/04/18 at 12:30 Acetaminophen/ Hydrocodone Bitart ([place] (5/325)) 1 tab Q4H PRN PO MODERATE PAIN LEVEL 4-6 Last administered on 11/04/18 19:15; Admin Dose 1 TAB; Start 11/04/18 at 12:30 Amlodipine Besylate (Norvasc) 10 mg DAILY PO Last administered on 11/06/18 08:46; Admin Dose 10 MG; Start 11/05/18 at 09:00 Atorvastatin Calcium (Lipitor) 80 mg QHS PO Last administered on 11/06/18 20:52; Admin Dose 80 MG; Start 11/05/18 at 21:00 Losartan Potassium (Cozaar) 100 mg QAM PO Last administered on 11/06/18 08:45; Admin Dose 100 MG; Start 11/05/18 at 09:00 Metoprolol Succinate (Toprol Xl) 100 mg QAM PO Last administered on 11/06/18 08:46; Admin Dose 100 MG; Start 11/05/18 at 09:00 Pantoprazole (Protonix Tab) 40 mg DAILY PO Last administered on 11/06/18 08:46; Admin Dose 40 MG; Start 11/05/18 at 09:00 Acetaminophen (Tylenol Tab) 500 mg Q4H PRN PO MILD PAIN(1-3)OR ELEVATED TEMP; Start 11/04/18 at 22:30 Acetaminophen/ Hydrocodone Bitart ([place] (5/325)) 2 tab Q4H PRN PO MODERATE PAIN LEVEL 4-6 Last administered on 11/07/18 08:08; Admin Dose 2 TAB; Start 11/04/18 at 23:00 Hydromorphone HCl (Dilaudid) 2 mg Q2H PRN IV SEVERE PAIN LEVEL 7-10 Last administered on 11/07/18 05:24; Admin Dose 2 MG; Start 11/06/18 at 10:00 JUANA SALINAS PA-C November 07, 2018 08:29
[2018-11-07] MEDS: METOPROLOL (XL) 100 MG TAB PO SCH (09:14)
[2018-11-07] MEDS: LOSARTAN 50 MG TAB PO SCH (09:14)
[2018-11-07] MEDS: AMLODIPINE 10 MG TAB PO SCH (09:14)
[2018-11-07] MEDS: PANTOPRAZOLE (EC) 40 MG TAB PO SCH (09:14)
[2018-11-07] MEDS: HYDROCODONE/APAP (10/325) TAB PO PRN ×2 (12:13→19:39)
--- NOTE | 2018-11-07 12:25 | PN ---
Date/Time of Note Date/Time of Note DATE: 11/07/18 TIME: 12:25 Assessment/Plan VTE Prophylaxis Risk score (from Nsg)>0 risk: 3 SCD applied (from Nsg): Yes Pharmacological prophylaxis: LMWH Lines/Catheters IV Catheter Type (from Nrsg): Peripheral IV Urinary Cath still in place: Yes Reason Cath still needed: skin wounds contaminated by urine Assessment/Plan Hospital Course - Lumbar spondylolisthesis with spondylosis and mechanical lower back pain - status post surgery as described above. - continue postop care per neuro sx- Dr. Lilly - regular diet - IV fluids - IV cefazolin - [place] and MSO4 for pain control - Hypertension. -continue Norvasc, Cozaar, metoprolol - Dyslipidemia on Lipitor, - Gastroesophageal reflux disease. - Protonix. - Possible obstructive sleep apnea syndrome- no acute issues - SCD for DVT prophylaxis. Result Diagram: 11/07/18 0425 11/07/18 0425 Results 24hrs Laboratory Tests Test 11/07/18 04:25 White Blood Count 13.3 H Red Blood Count 4.60 L Hemoglobin 14.3 Hematocrit 41.4 L Mean Corpuscular Volume 90.0 Mean Corpuscular Hemoglobin 31.1 Mean Corpuscular Hemoglobin Concent 34.5 Red Cell Distribution Width 12.8 Platelet Count 205 Mean Platelet Volume 10.0 Immature Granulocytes % 0.800 H Neutrophils % 66.7 Lymphocytes % 20.1 Monocytes % 9.2 Eosinophils % 2.6 Basophils % 0.6 Nucleated Red Blood Cells % 0.0 Immature Granulocytes # 0.100 H Neutrophils # 8.9 H Lymphocytes # 2.7 Monocytes # 1.2 H Eosinophils # 0.3 Basophils # 0.1 Nucleated Red Blood Cells # 0.0 Sodium Level 140 Potassium Level 3.8 Chloride Level 101 Carbon Dioxide Level 30 Anion Gap 9 Blood Urea Nitrogen 18 Creatinine 0.82 Est Glomerular Filtrat Rate mL/min > 60 Glucose Level 142 Calcium Level 9.2 Subjective 24 Hr Interval Summary Free Text/Dictation Patient has pain in back Exam/Review of Systems Exam Vitals Vital Signs Date Temp Pulse Resp B/P (MAP) Pulse Ox O2 O2 Flow FiO2 Time Delivery Rate 11/07/18 98.5 81 15 130/76 95 Room Air 07:14 (94) 11/06/18 2.0 00:08 Intake and Output 11/06/18 11/06/18 11/07/18 1515:00 23:00 07:00 IntakeIntake Total 50 ml 400 ml 600 ml OutputOutput Total 400 ml 840 ml 20 ml BalanceBalance -350 ml -440 ml 580 ml Constitutional: well developed Head: normocephalic, atraumatic Neck: supple Respiratory: clear to auscultation Cardiovascular: regular rate and rhythm Gastrointestinal: soft, non-tender Extremities: normal pulses Results Results 24hrs Laboratory Tests Test 11/07/18 04:25 White Blood Count 13.3 H Red Blood Count 4.60 L Hemoglobin 14.3 Hematocrit 41.4 L Mean Corpuscular Volume 90.0 Mean Corpuscular Hemoglobin 31.1 Mean Corpuscular Hemoglobin Concent 34.5 Red Cell Distribution Width 12.8 Platelet Count 205 Mean Platelet Volume 10.0 Immature Granulocytes % 0.800 H Neutrophils % 66.7 Lymphocytes % 20.1 Monocytes % 9.2 Eosinophils % 2.6 Basophils % 0.6 Nucleated Red Blood Cells % 0.0 Immature Granulocytes # 0.100 H Neutrophils # 8.9 H Lymphocytes # 2.7 Monocytes # 1.2 H Eosinophils # 0.3 Basophils # 0.1 Nucleated Red Blood Cells # 0.0 Sodium Level 140 Potassium Level 3.8 Chloride Level 101 Carbon Dioxide Level 30 Anion Gap 9 Blood Urea Nitrogen 18 Creatinine 0.82 Est Glomerular Filtrat Rate mL/min > 60 Glucose Level 142 Calcium Level 9.2 Medications Medication Current Medications Ondansetron HCl (Zofran Inj) 4 mg Q6H PRN IV NAUSEA AND/OR VOMITING; Start at 12:30 Amlodipine Besylate (Norvasc) 10 mg DAILY PO Last administered on 11/07/18 09:14; Admin Dose 10 MG; Start 11/05/18 at 09:00 Atorvastatin Calcium (Lipitor) 80 mg QHS PO Last administered on 11/06/18at 20:52; Admin Dose 80 MG; Start 11/05/18 at 21:00 Losartan Potassium (Cozaar) 100 mg QAM PO Last administered on 11/07/18 09:14; Admin Dose 100 MG; Start 11/05/18 at 09:00 Metoprolol Succinate (Toprol Xl) 100 mg QAM PO Last administered on 11/07/18 09:14; Admin Dose 100 MG; Start 11/05/18 at 09:00 Pantoprazole (Protonix Tab) 40 mg DAILY PO Last administered on 11/07/18at 09:14; Admin Dose 40 MG; Start 11/05/18 at 09:00 Acetaminophen (Tylenol Tab) 500 mg Q4H PRN PO MILD PAIN(1-3)OR ELEVATED TEMP; Start 11/04/18 at 22:30 Hydromorphone HCl (Dilaudid) 2 mg Q4H PRN IV SEVERE PAIN LEVEL 7-10 Last administered on 11/07/18at 09:16; Admin Dose 2 MG; Start 11/07/18 at 08:30 Acetaminophen/ Hydrocodone Bitart ([place] (10)) 1 tab Q6H PRN PO MODERATE PAIN LEVEL 4-6 Last administered on 11/07/18at 12:13; Admin Dose 1 TAB; Start 11/07/18 at 08:30 TRA GOMES November 07, 2018 12:25
[2018-11-07 14:21] VITALS: BP 115/72; PULSE 86; RESP 16
[2018-11-07 19:43] VITALS: BP 112/61; PULSE 78; RESP 16
[2018-11-07] MEDS: ATORVASTATIN 80 MG TAB PO SCH (20:57)
[2018-11-08] MEDS: HYDROCODONE/APAP (10/325) TAB PO PRN ×4 (02:06→16:35)
[2018-11-08] MEDS: HYDROmorphONE 2 MG/ML SYG IV PRN ×2 (03:27→09:31)
[2018-11-08 07:59] VITALS: BP 158/86; PULSE 92; RESP 18
[2018-11-08] MEDS: LOSARTAN 50 MG TAB PO SCH (08:20)
[2018-11-08] MEDS: AMLODIPINE 10 MG TAB PO SCH (08:20)
[2018-11-08] MEDS: PANTOPRAZOLE (EC) 40 MG TAB PO SCH (08:22)
[2018-11-08] MEDS: METOPROLOL (XL) 100 MG TAB PO SCH (08:22)
[2018-11-08] MEDS: BISACODYL (EC) 5 MG TAB PO PRN (08:23)
--- NOTE | 2018-11-08 13:02 | PN ---
Date/Time of Note Date/Time of Note DATE: 11/08/18 TIME: 13:02 Assessment/Plan VTE Prophylaxis Risk score (from Nsg)>0 risk: 4 SCD applied (from Nsg): Yes Pharmacological prophylaxis: LMWH Lines/Catheters IV Catheter Type (from Nrsg): Saline Lock Urinary Cath still in place: Yes Reason Cath still needed: skin wounds contaminated by urine Assessment/Plan Hospital Course - Lumbar spondylolisthesis with spondylosis and mechanical lower back pain - status post surgery as described above. - continue postop care per neuro sx- Dr. Lilly - regular diet - IV fluids - IV cefazolin - [place] and MSO4 for pain control - Hypertension. -continue Norvasc, Cozaar, metoprolol - Dyslipidemia on Lipitor, - Gastroesophageal reflux disease. - Protonix. - Possible obstructive sleep apnea syndrome- no acute issues - SCD for DVT prophylaxis. Result Diagram: 11/07/18 0425 11/07/185 Subjective 24 Hr Interval Summary Free Text/Dictation Patient complain of pain in legs while walking Exam/Review of Systems Exam Vitals Vital Signs Date Temp Pulse Resp B/P (MAP) Pulse Ox O2 O2 Flow FiO2 Time Delivery Rate 11/08/18 98.8 92 18 158/86 95 Room Air 07:59 (110) 11/06/18 2.0 00:08 Intake and Output 11/07/18 11/07/18 11/08/18 1515:00 23:00 07:00 IntakeIntake Total 1050 ml 1300 ml OutputOutput Total 505 ml 450 ml BalanceBalance 545 ml 850 ml Constitutional: well developed Head: normocephalic, atraumatic Neck: supple Respiratory: clear to auscultation Cardiovascular: regular rate and rhythm Gastrointestinal: soft, non-tender Extremities: normal pulses Medications Medication Current Medications Ondansetron HCl (Zofran Inj) 4 mg Q6H PRN IV NAUSEA AND/OR VOMITING; Start 11/04/18 at 12:30 Amlodipine Besylate (Norvasc) 10 mg DAILY PO Last administered on 11/08/18at 08:20; Admin Dose 10 MG; Start 11/05/18 at 09:00 Atorvastatin Calcium (Lipitor) 80 mg QHS PO Last administered on 11/07/18at 20:57; Admin Dose 80 MG; Start 11/05/18 at 21:00 Losartan Potassium (Cozaar) 100 mg QAM PO Last administered on 11/08/18 08:20; Admin Dose 100 MG; Start 11/05/18 at 09:00 Metoprolol Succinate (Toprol Xl) 100 mg QAM PO Last administered on 11/08/18 08:22; Admin Dose 100 MG; Start 11/05/18 at 09:00 Pantoprazole (Protonix Tab) 40 mg DAILY PO Last administered on 11/08/18 08:22; Admin Dose 40 MG; Start 11/05/18 at 09:00 Acetaminophen (Tylenol Tab) 500 mg Q4H PRN PO MILD PAIN(1-3)OR ELEVATED TEMP; Start 11/04/18 at 22:30 Docusate Sodium (Colace) 100 mg BID PRN PO CONSTIPATION; Start 11/07/18 at 12:30 Bisacodyl (Dulcolax) 10 mg DAILY PRN PO CONSTIPATION Last administered on 11/08/18at 08:23; Admin Dose 10 MG; Start 11/07/18 at 12:30 Acetaminophen/ Hydrocodone Bitart ([place] (10/325)) 1 tab Q4H PRN PO MODERATE PAIN LEVEL 4-6 Last administered on 11/08/18at 12:19; Admin Dose 1 TAB; Start 11/08/18 at 10:30 Hydromorphone HCl (Dilaudid) 1 mg Q4H PRN IV SEVERE PAIN LEVEL 7-10; Start 11/08/18 at 12:30 TRA GOMES November 08, 2018 13:02
[2018-11-08 15:08] VITALS: BP 129/63; PULSE 77; RESP 18
[2018-11-08] MEDS: HYDROmorphONE 1 MG/ML SYG IV PRN ×2 (15:28→20:17)
[2018-11-08] MEDS: ACETAMINOPHEN 500 MG TAB PO PRN (15:35)
[2018-11-08] MEDS ORDERED: CYCLOBENZAPRINE 10 MG TAB PO SCH (16:30)
[2018-11-08] MEDS: CYCLOBENZAPRINE 10 MG TAB PO SCH ×2 (17:32→19:58)
[2018-11-08 19:57] VITALS: BP 122/79; PULSE 88; RESP 18
[2018-11-08] MEDS: DOCUSATE SODIUM 100 MG CAP PO PRN (20:16)
[2018-11-08] MEDS: ATORVASTATIN 80 MG TAB PO SCH (20:16)
[2018-11-09] MEDS: HYDROCODONE/APAP (10/325) TAB PO PRN ×5 (01:25→22:50)
[2018-11-09 01:46] VITALS: BP 138/71; PULSE 89; RESP 18
[2018-11-09] MEDS: HYDROmorphONE 1 MG/ML SYG IV PRN (04:39)
[2018-11-09 07:40] VITALS: BP 116/67; PULSE 88; RESP 18
[2018-11-09] MEDS: CYCLOBENZAPRINE 10 MG TAB PO SCH ×3 (08:15→20:09)
[2018-11-09] MEDS: DOCUSATE SODIUM 100 MG CAP PO PRN (08:15)
[2018-11-09] MEDS: AMLODIPINE 10 MG TAB PO SCH (08:15)
[2018-11-09] MEDS: LOSARTAN 50 MG TAB PO SCH (08:16)
[2018-11-09] MEDS: METOPROLOL (XL) 100 MG TAB PO SCH (08:16)
[2018-11-09] MEDS: PANTOPRAZOLE (EC) 40 MG TAB PO SCH (08:16)
[2018-11-09] MEDS: HYDROmorphONE 2 MG/ML SYG IV PRN ×3 (11:40→20:09)
[2018-11-09] MEDS: BISACODYL (EC) 5 MG TAB PO PRN (12:44)
--- NOTE | 2018-11-09 13:41 | CONS ---
Assessment/Plan Assessment/Plan Assessment/Plan (Daily) seen and examined awake alert follows moves all sens intact xrays on lumbar spine look ok, hardware intact pt co at time severe back and leg pain no bladder/bowel dysfunction decadron iv full liquid diet cont pt/ot needs to have corsett on at all times. Consultation Date/Type/Reason Admit Date/Time November 04, 2018 at 12:30 Initial Consult Date Date/Time of Note DATE: 11/09/18 TIME: 13:39 Exam/Review of Systems Exam Vitals Vital Signs Date Temp Pulse Resp B/P (MAP) Pulse Ox O2 O2 Flow FiO2 Time Delivery Rate 11/09/18 98.3 88 18 116/67 99 Room Air 07:40 (83) 11/06/18 2.0 00:08 Intake and Output 11/08/18 11/08/18 11/09/18 1515:00 23:00 07:00 IntakeIntake Total 360 ml 1080 ml OutputOutput Total 700 ml 550 ml BalanceBalance -340 ml 530 ml Results Result Diagram: 11/07/18 0425 11/07/18 0425 Medications Medication Current Medications Ondansetron HCl (Zofran Inj) 4 mg Q6H PRN IV NAUSEA AND/OR VOMITING; Start 11/04/18 at 12:30 Amlodipine Besylate (Norvasc) 10 mg DAILY PO Last administered on 11/09/18at 08:15; Admin Dose 10 MG; Start 11/05/18 at 09:00 Atorvastatin Calcium (Lipitor) 80 mg QHS PO Last administered on 11/08/18at 20:16; Admin Dose 80 MG; Start 11/05/18 at 21:00 Losartan Potassium (Cozaar) 100 mg QAM PO Last administered on 11/09/18 08:16; Admin Dose 100 MG; Start 11/05/18 at 09:00 Metoprolol Succinate (Toprol Xl) 100 mg QAM PO Last administered on 11/09/18 08:16; Admin Dose 100 MG; Start 11/05/18 at 09:00 Pantoprazole (Protonix Tab) 40 mg DAILY PO Last administered on 11/09/18 08:16; Admin Dose 40 MG; Start 11/05/18 at 09:00 Acetaminophen (Tylenol Tab) 500 mg Q4H PRN PO MILD PAIN(1-3)OR ELEVATED TEMP Last administered on 11/08/18 15:35; Admin Dose 500 MG; Start 11/04/18 at 22:30 Docusate Sodium (Colace) 100 mg BID PRN PO CONSTIPATION Last administered on 11/09/18 08:15; Admin Dose 100 MG; Start 11/07/18 at 12:30 Bisacodyl (Dulcolax) 10 mg DAILY PRN PO CONSTIPATION Last administered on 11/09/18 12:44; Admin Dose 10 MG; Start 11/07/18 at 12:30 Acetaminophen/ Hydrocodone Bitart ([place] (10)) 1 tab Q4H PRN PO MODERATE PAIN LEVEL 4-6 Last administered on 11/09/18 12:44; Admin Dose 1 TAB; Start 11/08/18 at 10:30 Cyclobenzaprine HCl (Flexeril) 10 mg TID PO Last administered on 11/09/18 12:44; Admin Dose 10 MG; Start 11/08/18 at 16:30 Hydromorphone HCl (Dilaudid) 2 mg Q4H PRN IV SEVERE PAIN LEVEL 7-10 Last administered on 11/09/18 11:40; Admin Dose 2 MG; Start 11/09/18 at 11:30 Dexamethasone (Decadron) 4 mg Q6 IV ; Start 11/09/18 at 13:30 JUANA SALINAS PA-C November 09, 2018 13:41
[2018-11-09] MEDS: DEXAMETHASONE 4 MG/ML 1 ML INJ IV SCH ×2 (14:01→18:35)
--- NOTE | 2018-11-09 14:48 | OPR ---
DATE OF OPERATION: 11/04/2018 PREOPERATIVE DIAGNOSES: 1. Lumbar stenosis. 2. Lumbar spondylosis. 3. Lumbar foraminal stenosis. 4. Mechanical low back pain, L5 to S1. 5. Grade 1 spondylolisthesis. 6. Possible spondylolysis. POSTOPERATIVE DIAGNOSIS: PROCEDURES: 1. L5 to S1 posterolateral fusion, CPT 58912. 2. L5 bilateral laminectomy, medial fasciotomy and foraminotomy, CPT 35844. 3. S1 bilateral laminectomy, medial fasciotomy and foraminotomy, CPT 87824. 4. L5 to S1 posterior segmental instrumentation lumbar spine, CPT 39514. SURGEON: Manny Lilly MD BAND SHOVER: PETE Albrecht COMPLICATIONS: None. ANESTHESIA: General endotracheal. ESTIMATED BLOOD LOSS: Less than 200. COUNTS: Needle counts and sponge counts were correct. SPECIMEN: Multiple fragments of the lamina were sent to pathology. INDICATION FOR OPERATION: The patient is well known to me. The patient is seen by me on multiple oc casions in the office. The patient has been complaining of low back pain and leg pain to bilateral l ower extremities, difficulty walking for normal daily activity. He does not have any bowel or bladde r dysfunction. He says the pain is constant, shooting down the legs to the point that he is unable t o do his normal daily activity. We will proceed with lumbar laminectomy, fusion, instrumentation. R isks and benefits of the operation including anesthesia, infection, bleeding, permanent neurological injury and were explained. The patient has agreed to proceed with the operation and signed the consent. PROCEDURE IN DETAILS: The patient was placed in supine position. Adequate general endotracheal anes thesia was obtained. The patient was turned prone on vertical bolsters. Lumbar region was shaved, p repped and draped in normal sterile fashion, was infiltrated with lidocaine with epinephrine solution . Skin incision was made with 10-blade, was carried past the lumbodorsal fascia to the lamina of the L5 to S1. Complete laminectomy of L5 and S1 was done with medial facetectomy, foraminotomy, identifying the ner ve roots of L4 and L5 and S1, decompressing the nerve root of L4, L5 and S1 distally into the neural foramen. The area was irrigated. At this time, I placed pedicle screws at the level of L5 and S1. These were [employer] matrix screws 6 x 40 mm. Total of 4 of them were used. Rods were loaded onto the ped icle screws and the locking caps were placed. At this time, 10 mL of demineralized bone matrix was mixed with the bone that was harvested during th e laminectomy was placed as an onlay graft at the L5-S1 level achieving posterolateral fusion at the L5 to S1 level. The area was irrigated with Bacitracin saline solution. I made sure that everything was torque tight ened with the instrumentation part of the operation. I started the closure of the operation at this time with #1 Vicryl for lumbodorsal fascia and 2-0 Ricardo ryl for subcutaneous tissue and dermis with Steri-Strips for the skin. The drain was placed in the e pidural space, exiting from skin through a separate stab incision, was secured to the skin with sutur es. The patient was extubated, was taken to postanesthesia recovery in stable condition, following comman ds, moving all muscle groups of the upper and lower extremities. Dictated By: MANNY LYONS/ELEONORA Conf#: [id number] DID#: [id number]
[2018-11-09 15:20] VITALS: BP 128/74; PULSE 84; RESP 18
--- NOTE | 2018-11-09 16:50 | PN ---
Date/Time of Note Date/Time of Note DATE: 11/09/18 TIME: 16:47 Assessment/Plan VTE Prophylaxis Risk score (from Ns)>0 risk: 5 SCD applied (from Ns): Yes Pharmacological prophylaxis: NA/contraindicated Pharm contraindication: surgical contra Lines/Catheters IV Catheter Type (from Nrsg): Saline Lock Urinary Cath still in place: Yes Reason Cath still needed: urinary retention Assessment/Plan Hospital Course Patient's complaining of significant pain unable to step on his feet due to pain, complains of constipation patient is started on Decadron by neurosurgery will start patient on a bowel regimen. Assessment/Plan - Lumbar spondylolisthesis with spondylosis and mechanical lower back pain status post L5/S1 laminectomy with fusion/ pedicle screw instrumentation Dr. Lilly on 11/05/18. Continue [place] and Dilaudid for pain, muscle relaxant and Decadron for swelling. - Hypertension. - Dyslipidemia. - Gastroesophageal reflux disease. - Possible obstructive sleep apnea syndrome. - Obesity Further recommendations based on clinical course. Plan of care discussed with Dr. Velazquez. Result Diagram: 11/07/18 0425 11/07/18 0425 Exam/Review of Systems Exam Vitals Vital Signs Date Temp Pulse Resp B/P (MAP) Pulse Ox O2 O2 Flow FiO2 Time Delivery Rate 11/09/18 98.3 84 18 128/74 99 Room Air 15:20 (92) 11/06/18 2.0 00:08 Intake and Output 11/08/18 11/08/18 11/09/18 1515:00 23:00 07:00 IntakeIntake Total 360 ml 1080 ml OutputOutput Total 700 ml 550 ml BalanceBalance -340 ml 530 ml Constitutional: alert, oriented Head: normocephalic Cardiovascular: nl pulses Gastrointestinal: soft, non-tender Extremities: normal pulses Neurological: nl mental status Medications Medication Current Medications Ondansetron HCl (Zofran Inj) 4 mg Q6H PRN IV NAUSEA AND/OR VOMITING; Start 11/04/18 at 12:30 Amlodipine Besylate (Norvasc) 10 mg DAILY PO Last administered on 11/09/18at 08:15; Admin Dose 10 MG; Start 11/05/18 at 09:00 Atorvastatin Calcium (Lipitor) 80 mg QHS PO Last administered on 11/08/18at 20:16; Admin Dose 80 MG; Start 11/05/18 at 21:00 Losartan Potassium (Cozaar) 100 mg QAM PO Last administered on 11/09/18 08:16; Admin Dose 100 MG; Start 11/05/18 at 09:00 Metoprolol Succinate (Toprol Xl) 100 mg QAM PO Last administered on 11/09/18 08:16; Admin Dose 100 MG; Start 11/05/18 at 09:00 Pantoprazole (Protonix Tab) 40 mg DAILY PO Last administered on 11/09/18 08:16; Admin Dose 40 MG; Start 11/05/18 at 09:00 Acetaminophen (Tylenol Tab) 500 mg Q4H PRN PO MILD PAIN(1-3)OR ELEVATED TEMP Last administered on 11/08/18 15:35; Admin Dose 500 MG; Start 11/04/18 at 22:30 Docusate Sodium (Colace) 100 mg BID PRN PO CONSTIPATION Last administered on 11/09/18 08:15; Admin Dose 100 MG; Start 11/07/18 at 12:30 Bisacodyl (Dulcolax) 10 mg DAILY PRN PO CONSTIPATION Last administered on 11/09/18 12:44; Admin Dose 10 MG; Start 11/07/18 at 12:30 Acetaminophen/ Hydrocodone Bitart ([place] (10/325)) 1 tab Q4H PRN PO MODERATE PAIN LEVEL 4-6 Last administered on 11/09/18 12:44; Admin Dose 1 TAB; Start 11/08/18 at 10:30 Cyclobenzaprine HCl (Flexeril) 10 mg TID PO Last administered on 11/09/18 12:44; Admin Dose 10 MG; Start 11/08/18 at 16:30 Hydromorphone HCl (Dilaudid) 2 mg Q4H PRN IV SEVERE PAIN LEVEL 7-10 Last administered on 11/09/18 16:11; Admin Dose 2 MG; Start 11/09/18 at 11:30 Dexamethasone (Decadron) 4 mg Q6 IV Last administered on 11/09/18 14:01; Admin Dose 4 MG; Start 11/09/18 at 13:30 BRITANY REYNA November 09, 2018 16:50
[2018-11-09 19:41] VITALS: BP 137/84; PULSE 90; RESP 18
[2018-11-09] MEDS: ATORVASTATIN 80 MG TAB PO SCH (20:09)
[2018-11-10] MEDS: DEXAMETHASONE 4 MG/ML 1 ML INJ IV SCH ×5 (00:09→23:59)
[2018-11-10 02:21] VITALS: BP 127/77; PULSE 85; RESP 18
[2018-11-10] MEDS: HYDROmorphONE 2 MG/ML SYG IV PRN ×4 (04:02→21:23)
[2018-11-10 07:36] VITALS: BP 122/61; PULSE 83; RESP 18
[2018-11-10] MEDS: CYCLOBENZAPRINE 10 MG TAB PO SCH ×3 (08:38→20:22)
[2018-11-10] MEDS: METOPROLOL (XL) 100 MG TAB PO SCH (08:38)
[2018-11-10] MEDS: LOSARTAN 50 MG TAB PO SCH (08:39)
[2018-11-10] MEDS: AMLODIPINE 10 MG TAB PO SCH (08:39)
[2018-11-10] MEDS: HYDROCODONE/APAP (10/325) TAB PO PRN ×2 (08:43→18:58)
[2018-11-10] MEDS: PANTOPRAZOLE (EC) 40 MG TAB PO SCH (09:00)
[2018-11-10 14:24] VITALS: BP 117/61; PULSE 80; RESP 18
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
--- NOTE | 2018-11-10 19:15 | PN ---
Date/Time of Note Date/Time of Note DATE: 11/10/18 TIME: 19:14 Assessment/Plan VTE Prophylaxis Risk score (from Ns)>0 risk: 4 SCD applied (from Ns): Yes Pharmacological prophylaxis: NA/contraindicated Pharm contraindication: surgical contra Lines/Catheters IV Catheter Type (from Nrsg): Saline Lock Urinary Cath still in place: Yes Reason Cath still needed: urinary retention Assessment/Plan Hospital Course Patient continued has difficulty working pending MRI of the lumbar spine. BM last night, patient remains hemodynamically stable, afebrile. Assessment/Plan - Lumbar spondylolisthesis with spondylosis and mechanical lower back pain status post L5/S1 laminectomy with fusion/ pedicle screw instrumentation Dr. Lilly on 11/05/18. Continue [place] and Dilaudid for pain, muscle relaxant and Decadron for swelling. - Hypertension. - Dyslipidemia. - Gastroesophageal reflux disease. - Possible obstructive sleep apnea syndrome. - Obesity Further recommendations based on clinical course. Plan of care discussed with Dr. Velazquez. Result Diagram: 11/10/18 0431 11/10/18 0431 Results 24hrs Laboratory Tests Test 11/10/18 04:31 White Blood Count 13.8 H Red Blood Count 4.71 Hemoglobin 14.4 Hematocrit 41.4 L Mean Corpuscular Volume 87.9 Mean Corpuscular Hemoglobin 30.6 Mean Corpuscular Hemoglobin Concent 34.8 Red Cell Distribution Width 12.1 Platelet Count 279 # Mean Platelet Volume 9.8 Immature Granulocytes % 1.400 H Neutrophils % 84.8 H Lymphocytes % 8.5 L Monocytes % 4.8 Eosinophils % 0.1 Basophils % 0.4 Nucleated Red Blood Cells % 0.0 Immature Granulocytes # 0.200 H Neutrophils # 11.7 H Lymphocytes # 1.2 Monocytes # 0.7 Eosinophils # 0.0 Basophils # 0.1 Nucleated Red Blood Cells # 0.0 Sodium Level 137 Potassium Level 4.6 Chloride Level 99 Carbon Dioxide Level 26 Anion Gap 12 Blood Urea Nitrogen 18 Creatinine 0.72 Est Glomerular Filtrat Rate mL/min > 60 Glucose Level 217 Calcium Level 9.4 Exam/Review of Systems Exam Vitals Vital Signs Date Temp Pulse Resp B/P (MAP) Pulse Ox O2 O2 Flow FiO2 Time Delivery Rate 11/10/18 97.7 80 18 117/61 92 Room Air 14:24 (79) Intake and Output 11/09/18 11/09/18 11/10/18 1515:00 23:00 07:00 IntakeIntake Total 800 ml 450 ml OutputOutput Total 400 ml BalanceBalance 800 ml 50 ml Exam Constitutional: alert, oriented Head: normocephalic Cardiovascular: nl pulses Gastrointestinal: soft, non-tender Extremities: normal pulses Neurological: nl mental status Results Results 24hrs Laboratory Tests Test 11/10/18 04:31 White Blood Count 13.8 H Red Blood Count 4.71 Hemoglobin 14.4 Hematocrit 41.4 L Mean Corpuscular Volume 87.9 Mean Corpuscular Hemoglobin 30.6 Mean Corpuscular Hemoglobin Concent 34.8 Red Cell Distribution Width 12.1 Platelet Count 279 # Mean Platelet Volume 9.8 Immature Granulocytes % 1.400 H Neutrophils % 84.8 H Lymphocytes % 8.5 L Monocytes % 4.8 Eosinophils % 0.1 Basophils % 0.4 Nucleated Red Blood Cells % 0.0 Immature Granulocytes # 0.200 H Neutrophils # 11.7 H Lymphocytes # 1.2 Monocytes # 0.7 Eosinophils # 0.0 Basophils # 0.1 Nucleated Red Blood Cells # 0.0 Sodium Level 137 Potassium Level 4.6 Chloride Level 99 Carbon Dioxide Level 26 Anion Gap 12 Blood Urea Nitrogen 18 Creatinine 0.72 Est Glomerular Filtrat Rate mL/min > 60 Glucose Level 217 Calcium Level 9.4 Medications Medication Current Medications Ondansetron HCl (Zofran Inj) 4 mg Q6H PRN IV NAUSEA AND/OR VOMITING; Start 11/04/18 at 12:30 Amlodipine Besylate (Norvasc) 10 mg DAILY PO Last administered on 11/10/18at 08:39; Admin Dose 10 MG; Start 11/05/18 at 09:00 Atorvastatin Calcium (Lipitor) 80 mg QHS PO Last administered on 11/09/18at 20:09; Admin Dose 80 MG; Start 11/05/18 at 21:00 Losartan Potassium (Cozaar) 100 mg QAM PO Last administered on 11/10/18at 08:39; Admin Dose 100 MG; Start 11/05/18 at 09:00 Metoprolol Succinate (Toprol Xl) 100 mg QAM PO Last administered on 11/10/18at 08:38; Admin Dose 100 MG; Start 11/05/18 at 09:00 Pantoprazole (Protonix Tab) 40 mg DAILY PO Last administered on 11/09/18 08:16; Admin Dose 40 MG; Start 11/05/18 at 09:00 Acetaminophen (Tylenol Tab) 500 mg Q4H PRN PO MILD PAIN(1-3)OR ELEVATED TEMP Last administered on 11/08/18 15:35; Admin Dose 500 MG; Start 11/04/18 at 22:30 Docusate Sodium (Colace) 100 mg BID PRN PO CONSTIPATION Last administered on 11/09/18 08:15; Admin Dose 100 MG; Start 11/07/18 at 12:30 Bisacodyl (Dulcolax) 10 mg DAILY PRN PO CONSTIPATION Last administered on 9at 12:44; Admin Dose 10 MG; Start 11/07/18 at 12:30 Acetaminophen/ Hydrocodone Bitart ([place] (10/325)) 1 tab Q4H PRN PO MODERATE PAIN LEVEL 4-6 Last administered on 11/10/18 18:58; Admin Dose 1 TAB; Start 11/08/18 at 10:30 Cyclobenzaprine HCl (Flexeril) 10 mg TID PO Last administered on 11/10/18 12 :26; Admin Dose 10 MG; Start 11/08/18 at 16:30 Hydromorphone HCl (Dilaudid) 2 mg Q4H PRN IV SEVERE PAIN LEVEL 7-10 Last administered on 11/10/18 15:23; Admin Dose 2 MG; Start 11/09/18 at 11:30 Dexamethasone (Decadron) 4 mg Q6 IV Last administered on 11/10/18 17:49; Admin Dose 4 MG; Start 11/09/18 at 13:30 Diazepam (Valium) 5 mg ONCE PO ; Start 11/10/18 at 20:00; Stop 11/11/18 at 19:59 BRITANY REYNA November 10, 2018 19:15
[2018-11-10] MEDS ORDERED: DIAZEPAM 5 MG TAB PO SCH (20:00)
[2018-11-10] MEDS: ATORVASTATIN 80 MG TAB PO SCH (20:22)
[2018-11-10 20:30] VITALS: BP 110/61; PULSE 85; RESP 19
[2018-11-11 02:05] VITALS: BP 116/66; PULSE 88; RESP 20
[2018-11-11] MEDS: HYDROmorphONE 2 MG/ML SYG IV PRN ×4 (02:38→19:20)
[2018-11-11] MEDS: DEXAMETHASONE 4 MG/ML 1 ML INJ IV SCH ×3 (05:31→18:15)
[2018-11-11] MEDS: HYDROCODONE/APAP (10/325) TAB PO PRN ×4 (05:39→21:12)
[2018-11-11 08:05] VITALS: BP 106/65; PULSE 75; RESP 18
[2018-11-11] MEDS: PANTOPRAZOLE (EC) 40 MG TAB PO SCH (09:35)
[2018-11-11] MEDS: AMLODIPINE 10 MG TAB PO SCH (09:35)
[2018-11-11] MEDS: CYCLOBENZAPRINE 10 MG TAB PO SCH ×3 (09:35→21:13)
[2018-11-11] MEDS: METOPROLOL (XL) 100 MG TAB PO SCH (09:36)
[2018-11-11] MEDS: LOSARTAN 50 MG TAB PO SCH (09:36)
[2018-11-11] MEDS ORDERED: DIAZEPAM 5 MG TAB PO ONE (10:12)
[2018-11-11 14:31] VITALS: BP 108/68; PULSE 77; RESP 18
--- NOTE | 2018-11-11 14:34 | CONS ---
Assessment/Plan Assessment/Plan Assessment/Plan (Daily) seen and examined awake alert follows moves all sens intact lumbar mri looks ok, no compressive lesions, no hematoma cont pt/ot Consultation Date/Type/Reason Admit Date/Time November 04, 2018 at 12:30 Initial Consult Date Date/Time of Note DATE: 11/11/18 TIME: 14:32 Exam/Review of Systems Exam Vitals Vital Signs Date Temp Pulse Resp B/P (MAP) Pulse Ox O2 O2 Flow FiO2 Time Delivery Rate 11/11/18 98.1 77 18 108/68 99 14:31 (81) 11/10/18 Room Air 14:24 Intake and Output 11/10/18 11/10/18 11/11/18 1414:59 22:59 06:59 IntakeIntake Total 720 ml 200 ml OutputOutput Total 400 ml 700 ml 300 ml BalanceBalance 320 ml -500 ml -300 ml Results Result Diagram: 11/10/18 0431 11/10/18 0431 Medications Medication Current Medications Ondansetron HCl (Zofran Inj) 4 mg Q6H PRN IV NAUSEA AND/OR VOMITING; Start 11/04/18 at 12:30 Amlodipine Besylate (Norvasc) 10 mg DAILY PO Last administered on 11/11/18 09:35; Admin Dose 10 MG; Start 11/05/18 at 09:00 Atorvastatin Calcium (Lipitor) 80 mg QHS PO Last administered on 11/10/18at 20:22; Admin Dose 80 MG; Start 11/05/18 at 21:00 Losartan Potassium (Cozaar) 100 mg QAM PO Last administered on 11/11/18 09:36; Admin Dose 100 MG; Start 11/05/18 at 09:00 Metoprolol Succinate (Toprol Xl) 100 mg QAM PO Last administered on 11/11/18 09:36; Admin Dose 100 MG; Start 11/05/18 at 09:00 Pantoprazole (Protonix Tab) 40 mg DAILY PO Last administered on 11/11/18 09:35; Admin Dose 40 MG; Start 11/05/18 at 09:00 Acetaminophen (Tylenol Tab) 500 mg Q4H PRN PO MILD PAIN(1-3)OR ELEVATED TEMP Last administered on 11/08/18at 15:35; Admin Dose 500 MG; Start 11/04/18 at 22:30 Docusate Sodium (Colace) 100 mg BID PRN PO CONSTIPATION Last administered on 11/09/18 08:15; Admin Dose 100 MG; Start 11/07/18 at 12:30 Bisacodyl (Dulcolax) 10 mg DAILY PRN PO CONSTIPATION Last administered on 11/09/18 12:44; Admin Dose 10 MG; Start 11/07/18 at 12:30 Acetaminophen/ Hydrocodone Bitart ([place] (10/325)) 1 tab Q4H PRN PO MODERATE PAIN LEVEL 4-6 Last administered on 11/11/18 12:21; Admin Dose 1 TAB; Start 11/08/18 at 10:30 Cyclobenzaprine HCl (Flexeril) 10 mg TID PO Last administered on 11/11/18 12:21; Admin Dose 10 MG; Start 11/08/18 at 16:30 Hydromorphone HCl (Dilaudid) 2 mg Q4H PRN IV SEVERE PAIN LEVEL 7-10 Last administered on 11/11/18 13:42; Admin Dose 2 MG; Start 11/09/18 at 11:30 Dexamethasone (Decadron) 4 mg Q6 IV Last administered on 11/11/18 12:20; Admin Dose 4 MG; Start 11/09/18 at 13:30 Diazepam (Valium) 5 mg ONCE PO Last administered on 11/10/18 20:22; Admin Dose 5 MG; Start 11/10/18 at 20:00; Stop 11/11/18 at 19:59 JUANA SALINAS PA-C November 11, 2018 14:34
--- NOTE | 2018-11-11 15:02 | PN ---
Date/Time of Note Date/Time of Note DATE: 11/11/18 TIME: 15:00 Assessment/Plan VTE Prophylaxis Risk score (from Ns)>0 risk: 10 SCD applied (from Ns): Yes Pharmacological prophylaxis: NA/contraindicated Pharm contraindication: surgical contra Lines/Catheters IV Catheter Type (from Nrsg): Saline Lock Urinary Cath still in place: Yes Reason Cath still needed: urinary retention Assessment/Plan Hospital Course Patient is status post MRI of the lumbar spine, stable vital signs, continue current pain management, physical therapy. Assessment/Plan - Lumbar spondylolisthesis with spondylosis and mechanical lower back pain status post L5/S1 laminectomy with fusion/ pedicle screw instrumentation Dr. Lilly on 11/05/18. Continue [place] and Dilaudid for pain, muscle relaxant and Decadron for swelling. - Hypertension. - Dyslipidemia. - Gastroesophageal reflux disease. - Possible obstructive sleep apnea syndrome. - Obesity Further recommendations based on clinical course. Plan of care discussed with Dr. Velazquez. Result Diagram: 11/10/1843011/10/18430 Exam/Review of Systems Exam Vitals Vital Signs Date Temp Pulse Resp B/P (MAP) Pulse Ox O2 O2 Flow FiO2 Time Delivery Rate 11/11/18 98.1 77 18 108/68 99 14:31 (81) 11/10/18 Room Air 14:24 Intake and Output 11/10/18 11/10/18 11/11/18 1414:59 22:59 06:59 IntakeIntake Total 720 ml 200 ml OutputOutput Total 400 ml 700 ml 300 ml BalanceBalance 320 ml -500 ml -300 ml Exam Constitutional: alert, oriented Head: normocephalic Cardiovascular: nl pulses Gastrointestinal: soft, non-tender Extremities: normal pulses Neurological: nl mental status Medications Medication Current Medications Ondansetron HCl (Zofran Inj) 4 mg Q6H PRN IV NAUSEA AND/OR VOMITING; Start 11/04/18 at 12:30 Amlodipine Besylate (Norvasc) 10 mg DAILY PO Last administered on 11/11/18at 09:35; Admin Dose 10 MG; Start 11/05/18 at 09:00 Atorvastatin Calcium (Lipitor) 80 mg QHS PO Last administered on 11/10/18at 20:22; Admin Dose 80 MG; Start 11/05/18 at 21:00 Losartan Potassium (Cozaar) 100 mg QAM PO Last administered on 11/11/18 09:36; Admin Dose 100 MG; Start 11/05/18 at 09:00 Metoprolol Succinate (Toprol Xl) 100 mg QAM PO Last administered on 11/11/18 09:36; Admin Dose 100 MG; Start 11/05/18 at 09:00 Pantoprazole (Protonix Tab) 40 mg DAILY PO Last administered on 11/11/18 09:35; Admin Dose 40 MG; Start 11/05/18 at 09:00 Acetaminophen (Tylenol Tab) 500 mg Q4H PRN PO MILD PAIN(1-3)OR ELEVATED TEMP Last administered on 11/08/18 15:35; Admin Dose 500 MG; Start 11/04/18 at 22:30 Docusate Sodium (Colace) 100 mg BID PRN PO CONSTIPATION Last administered on 11/09/18 08:15; Admin Dose 100 MG; Start 11/07/18 at 12:30 Bisacodyl (Dulcolax) 10 mg DAILY PRN PO CONSTIPATION Last administered on 11/09/18 12:44; Admin Dose 10 MG; Start 11/07/18 at 12:30 Acetaminophen/ Hydrocodone Bitart ([place] (10/325)) 1 tab Q4H PRN PO MODERATE PAIN LEVEL 4-6 Last administered on 11/11/18 12:21; Admin Dose 1 TAB; Start 11/08/18 at 10:30 Cyclobenzaprine HCl (Flexeril) 10 mg TID PO Last administered on 11/11/18 12:21 ; Admin Dose 10 MG; Start 11/08/18 at 16:30 Hydromorphone HCl (Dilaudid) 2 mg Q4H PRN IV SEVERE PAIN LEVEL 7-10 Last administered on 11/11/18 13:42; Admin Dose 2 MG; Start 11/09/18 at 11:30 Dexamethasone (Decadron) 4 mg Q6 IV Last administered on 11/11/18 12:20; Admin Dose 4 MG; Start 11/09/18 at 13:30 Diazepam (Valium) 5 mg ONCE PO Last administered on 11/10/18 20:22; Admin Dose 5 MG; Start 11/10/18 at 20:00; Stop 11/11/18 at 19:59 BRITANY REYNA November 11, 2018 15:02
[2018-11-11 19:46] VITALS: BP 141/82; PULSE 88; RESP 20
[2018-11-11] MEDS: ATORVASTATIN 80 MG TAB PO SCH (21:13)
[2018-11-12] MEDS: DEXAMETHASONE 4 MG/ML 1 ML INJ IV SCH ×2 (00:08→05:29)
[2018-11-12] MEDS: HYDROmorphONE 2 MG/ML SYG IV PRN ×3 (01:22→14:14)
[2018-11-12 02:05] VITALS: BP 139/82; PULSE 86; RESP 20
--- NOTE | 2018-11-12 07:12 | CONS ---
Assessment/Plan Assessment/Plan Assessment/Plan (Daily) seen and examined awake alert follows moves all doing better may go home if pain is under control Consultation Date/Type/Reason Admit Date/Time November 04, 2018 at 12:30 Initial Consult Date Date/Time of Note DATE: 11/12/18 TIME: 07:11 Exam/Review of Systems Exam Vitals Vital Signs Date Temp Pulse Resp B/P (MAP) Pulse Ox O2 O2 Flow FiO2 Time Delivery Rate 11/12/18 98.6 86 20 139/82 94 Room Air 02:05 (101) Intake and Output 11/11/18 11/11/18 11/12/18 1515:00 23:00 07:00 IntakeIntake Total 1080 ml 360 ml OutputOutput Total 750 ml 1050 ml 1750 ml BalanceBalance 330 ml -690 ml -1750 ml Results Result Diagram: 11/10/18 0431 11/10/18 0431 Medications Medication Current Medications Ondansetron HCl (Zofran Inj) 4 mg Q6H PRN IV NAUSEA AND/OR VOMITING; Start 11/04/18 at 12:30 Amlodipine Besylate (Norvasc) 10 mg DAILY PO Last administered on 11/11/18 09:35; Admin Dose 10 MG; Start 11/05/18 at 09:00 Atorvastatin Calcium (Lipitor) 80 mg QHS PO Last administered on 11/11/18 21:13; Admin Dose 80 MG; Start 11/05/18 at 21:00 Losartan Potassium (Cozaar) 100 mg QAM PO Last administered on 11/11/18 09:36; Admin Dose 100 MG; Start 11/05/18 at 09:00 Metoprolol Succinate (Toprol Xl) 100 mg QAM PO Last administered on 11/11/18 09:36; Admin Dose 100 MG; Start 11/05/18 at 09:00 Pantoprazole (Protonix Tab) 40 mg DAILY PO Last administered on 11/11/18 09:35; Admin Dose 40 MG; Start 11/05/18 at 09:00 Acetaminophen (Tylenol Tab) 500 mg Q4H PRN PO MILD PAIN(1-3)OR ELEVATED TEMP Last administered on 11/08/18 15:35; Admin Dose 500 MG; Start 11/04/18 at 22:30 Docusate Sodium (Colace) 100 mg BID PRN PO CONSTIPATION Last administered on 11/09/18 08:15; Admin Dose 100 MG; Start 11/07/18 at 12:30 Bisacodyl (Dulcolax) 10 mg DAILY PRN PO CONSTIPATION Last administered on 12:44; Admin Dose 10 MG; Start 11/07/18 at 12:30 Acetaminophen/ Hydrocodone Bitart ([place] (10/325)) 1 tab Q4H PRN PO MODERATE PAIN LEVEL 4-6 Last administered on 11/11/18 21:12; Admin Dose 1 TAB; Start 11/08/18 at 10:30 Cyclobenzaprine HCl (Flexeril) 10 mg TID PO Last administered on 11/11/18 21:13; Admin Dose 10 MG; Start 11/08/18 at 16:30 Hydromorphone HCl (Dilaudid) 2 mg Q4H PRN IV SEVERE PAIN LEVEL 7-10 Last administered on 11/12/18 05:31; Admin Dose 2 MG; Start 11/09/18 at 11:30 Dexamethasone (Decadron) 4 mg Q6 IV Last administered on 11/12/18 05:29; Admin Dose 4 MG; Start 11/09/18 at 13:30 JUANA SALINAS PA-C November 12, 2018 07:12
[2018-11-12 07:36] VITALS: BP 143/77; PULSE 82; RESP 18
[2018-11-12] MEDS: CYCLOBENZAPRINE 10 MG TAB PO SCH ×3 (08:23→20:44)
[2018-11-12] MEDS: AMLODIPINE 10 MG TAB PO SCH (08:23)
[2018-11-12] MEDS: LOSARTAN 50 MG TAB PO SCH (08:23)
[2018-11-12] MEDS: PANTOPRAZOLE (EC) 40 MG TAB PO SCH (08:23)
[2018-11-12] MEDS: METOPROLOL (XL) 100 MG TAB PO SCH (08:24)
[2018-11-12] MEDS: HYDROCODONE/APAP (10/325) TAB PO PRN ×3 (08:36→19:26)
[2018-11-12] MEDS: ACETAMINOPHEN 500 MG TAB PO PRN (09:54)
[2018-11-12 14:58] VITALS: BP 122/71; PULSE 68; RESP 18
--- NOTE | 2018-11-12 17:00 | PN ---
Date/Time of Note Date/Time of Note DATE: 11/12/18 TIME: 16:57 Assessment/Plan VTE Prophylaxis Risk score (from Ns)>0 risk: 9 SCD applied (from Ns): Yes Pharmacological prophylaxis: NA/contraindicated Pharm contraindication: surgical contra Lines/Catheters IV Catheter Type (from Nrsg): Saline Lock Urinary Cath still in place: No Assessment/Plan Hospital Course Patient is still has significant amount of pain requiring IV Dilaudid, will increase [place], continue physical therapy. Assessment/Plan - Lumbar spondylolisthesis with spondylosis and mechanical lower back pain status post L5/S1 laminectomy with fusion/ pedicle screw instrumentation Dr. Lilly on 11/05/18. Continue [place] and Dilaudid for pain, muscle relaxant and Decadron for swelling. - Hypertension. - Dyslipidemia. - Gastroesophageal reflux disease. - Possible obstructive sleep apnea syndrome. - Obesity Further recommendations based on clinical course. Plan of care discussed with Dr. Velazquez. Result Diagram: 11/10/1843011/10/18430 Exam/Review of Systems Exam Vitals Vital Signs Date Temp Pulse Resp B/P (MAP) Pulse Ox O2 O2 Flow FiO2 Time Delivery Rate 11/12/18 98.0 68 18 122/71 94 Room Air 14:58 (88) Intake and Output 11/11/18 11/11/18 11/12/18 1515:00 23:00 07:00 IntakeIntake Total 1080 ml 360 ml OutputOutput Total 750 ml 1050 ml 1750 ml BalanceBalance 330 ml -690 ml -1750 ml Constitutional: alert, oriented Respiratory: clear to auscultation Cardiovascular: nl pulses Gastrointestinal: soft, non-tender Musculoskeletal: other (Status post lumbar surgery) Extremities: normal pulses Neurological: nl mental status Medications Medication Current Medications Ondansetron HCl (Zofran Inj) 4 mg Q6H PRN IV NAUSEA AND/OR VOMITING; Start 11/04/18 at 12:30 Amlodipine Besylate (Norvasc) 10 mg DAILY PO Last administered on 11/12/18at 08:23; Admin Dose 10 MG; Start 11/05/18 at 09:00 Atorvastatin Calcium (Lipitor) 80 mg QHS PO Last administered on 11/11/18at 21:13; Admin Dose 80 MG; Start 11/05/18 at 21:00 Losartan Potassium (Cozaar) 100 mg QAM PO Last administered on 11/12/18 08:23; Admin Dose 100 MG; Start 11/05/18 at 09:00 Metoprolol Succinate (Toprol Xl) 100 mg QAM PO Last administered on 11/12/18 08:24; Admin Dose 100 MG; Start 11/05/18 at 09:00 Pantoprazole (Protonix Tab) 40 mg DAILY PO Last administered on 11/12/18 08:23; Admin Dose 40 MG; Start 11/05/18 at 09:00 Acetaminophen (Tylenol Tab) 500 mg Q4H PRN PO MILD PAIN(1-3)OR ELEVATED TEMP [place] [facility] administered on 11/12/18 09:54; Admin Dose 500 MG; Start 11/04/18 at 22:30 Docusate Sodium (Colace) 100 mg BID PRN PO CONSTIPATION Last administered on 11/09/18 08:15; Admin Dose 100 MG; Start 11/07/18 at 12:30 Bisacodyl (Dulcolax) 10 mg DAILY PRN PO CONSTIPATION Last administered on 11/09/18 12:44; Admin Dose 10 MG; Start 11/07/18 at 12:30 Acetaminophen/ Hydrocodone Bitart ([place] (10/325)) 1 tab Q4H PRN PO MODERATE PAIN LEVEL 4-6 Last administered on 11/12/18 13:19; Admin Dose 1 TAB; Start 11/08/18 at 10:30 Cyclobenzaprine HCl (Flexeril) 10 mg TID PO Last administered on 11/12/18 13:19; Admin Dose 10 MG; Start 11/08/18 at 16:30 Hydromorphone HCl (Dilaudid) 2 mg Q4H PRN IV SEVERE PAIN LEVEL 7-10 Last administered on 11/12/18 14:14; Admin Dose 2 MG; Start 11/09/18 at 11:30 Dexamethasone (Decadron) 4 mg DAILY IV ; Start 11/13/18 at 09:00 Acetaminophen/ Hydrocodone Bitart ([place] (10/325)) 2 tab Q4H PRN PO SEVERE PAIN LEVEL 7-10; Start 11/12/18 at 16:30 BRITANY REYNA November 12, 2018 17:00
[2018-11-12 19:30] VITALS: BP 139/84; PULSE 82; RESP 18
[2018-11-12] MEDS: ATORVASTATIN 80 MG TAB PO SCH (20:44)
[2018-11-13 01:52] VITALS: BP 128/76; PULSE 76; RESP 18
[2018-11-13] MEDS: HYDROCODONE/APAP (10/325) TAB PO PRN ×4 (01:53→20:16)
[2018-11-13 08:02] VITALS: BP 131/82; PULSE 72; RESP 18
[2018-11-13] MEDS ORDERED: DEXAMETHASONE 4 MG/ML 1 ML INJ IV SCH (09:00)
[2018-11-13] MEDS: METOPROLOL (XL) 100 MG TAB PO SCH (09:32)
[2018-11-13] MEDS: PANTOPRAZOLE (EC) 40 MG TAB PO SCH (09:33)
[2018-11-13] MEDS: LOSARTAN 50 MG TAB PO SCH (09:33)
[2018-11-13] MEDS: AMLODIPINE 10 MG TAB PO SCH (09:33)
[2018-11-13 09:39] VITALS: BP 122/60; PULSE 86
[2018-11-13] MEDS: CYCLOBENZAPRINE 10 MG TAB PO SCH ×3 (11:12→20:16)
--- NOTE | 2018-11-13 11:44 | PN ---
Date/Time of Note Date/Time of Note DATE: 11/13/18 TIME: 11:44 Assessment/Plan VTE Prophylaxis Risk score (from Nsg)>0 risk: 9 SCD applied (from Nsg): Yes Lines/Catheters IV Catheter Type (from Nrsg): [place] Urinary Cath still in place: No Assessment/Plan Assessment/Plan - Lumbar spondylolisthesis with spondylosis and mechanical lower back pain status post L5/S1 laminectomy with fusion/ pedicle screw instrumentation Dr. Lilly on 11/05/18. Continue [place] and Dilaudid for pain, muscle relaxant and Decadron for swelling. - Hypertension. - Dyslipidemia. - Gastroesophageal reflux disease. - Possible obstructive sleep apnea syndrome. - Obesity Further recommendations based on clinical course. Plan of care discussed with Dr. Velazquez. Result Diagram: 11/10/1843011/10/18430 Exam/Review of Systems Exam Vitals Vital Signs Date Temp Pulse Resp B/P (MAP) Pulse Ox O2 O2 Flow FiO2 Time Delivery Rate 11/13/18 86 122/60 09:39 (80) 11/13/18 98.4 18 95 08:02 11/12/18 Room Air 14:58 Intake and Output 11/12/18 11/12/18 11/13/18 1515:00 23:00 07:00 IntakeIntake Total 800 ml 320 ml OutputOutput Total 800 ml 700 ml 1200 ml BalanceBalance 0 ml -380 ml -1200 ml Constitutional: alert Psych: no complaints, nl mood/affect Eyes: nl lids, nl sclera Neck: non-tender Gastrointestinal: soft, non-tender Musculoskeletal: muscle weakness, range of motion Extremities: normal pulses Neurological: nl mental status, nl speech Lymph: nontender Medications Medication Current Medications Ondansetron HCl (Zofran Inj) 4 mg Q6H PRN IV NAUSEA AND/OR VOMITING; Start 11/04/18 at 12:30 Amlodipine Besylate (Norvasc) 10 mg DAILY PO Last administered on 11/13/18at 09:33; Admin Dose 10 MG; Start 11/05/18 at 09:00 Atorvastatin Calcium (Lipitor) 80 mg QHS PO Last administered on 11/12/18at 20:44; Admin Dose 80 MG; Start 11/05/18 at 21:00 Losartan Potassium (Cozaar) 100 mg QAM PO Last administered on 11/13/18 09:33; Admin Dose 100 MG; Start 11/05/18 at 09:00 Metoprolol Succinate (Toprol Xl) 100 mg QAM PO Last administered on 11/13/18 09:32; Admin Dose 100 MG; Start 11/05/18 at 09:00 Pantoprazole (Protonix Tab) 40 mg DAILY PO Last administered on 11/13/18 09:33; Admin Dose 40 MG; Start 11/05/18 at 09:00 Acetaminophen (Tylenol Tab) 500 mg Q4H PRN PO MILD PAIN(1-3)OR ELEVATED TEMP Last administered on 11/12/18 09:54; Admin Dose 500 MG; Start 11/04/18 at 22:30 Docusate Sodium (Colace) 100 mg BID PRN PO CONSTIPATION Last administered on 11/09/18 08:15; Admin Dose 100 MG; Start 11/07/18 at 12:30 Bisacodyl (Dulcolax) 10 mg DAILY PRN PO CONSTIPATION Last administered on 11/09/18 12:44; Admin Dose 10 MG; Start 11/07/18 at 12:30 Acetaminophen/ Hydrocodone Bitart ([place] (10/325)) 1 tab Q4H PRN PO MODERATE PAIN LEVEL 4-6 Last administered on 11/12/18 13:19; Admin Dose 1 TAB; Start 11/08/18 at 10:30 Cyclobenzaprine HCl (Flexeril) 10 mg TID PO Last administered on 11/13/18 11:12; Admin Dose 10 MG; Start 11/08/18 at 16:30 Hydromorphone HCl (Dilaudid) 2 mg Q4H PRN IV SEVERE PAIN LEVEL 7-10 Last administered on 11/12/18 14:14; Admin Dose 2 MG; Start 11/09/18 at 11:30 Dexamethasone (Decadron) 4 mg DAILY IV Last administered on 11/13/18 09:29; Admin Dose 4 MG; Start 11/13/18 at 09:00 Acetaminophen/ Hydrocodone Bitart ([place] (10/325)) 2 tab Q4H PRN PO SEVERE PAIN LEVEL 7-10 Last administered on 11/13/18 09:34; Admin Dose 2 TAB; Start 11/12/18 at 16:30 JOSIAH TRINIDAD 10, 2019 11:44
[2018-11-13 15:23] VITALS: BP 128/78; PULSE 82; RESP 18
[2018-11-13] MEDS: ATORVASTATIN 80 MG TAB PO SCH (20:16)
[2018-11-13 20:29] VITALS: BP 140/82; PULSE 82; RESP 18
[2018-11-14 02:42] VITALS: BP 141/80; PULSE 86; RESP 18
[2018-11-14] MEDS: HYDROCODONE/APAP (10/325) TAB PO PRN ×3 (06:47→14:29)
[2018-11-14 07:52] VITALS: BP 139/89; PULSE 78; RESP 18
[2018-11-14] MEDS: AMLODIPINE 10 MG TAB PO SCH (08:23)
[2018-11-14] MEDS: METOPROLOL (XL) 100 MG TAB PO SCH (08:23)
[2018-11-14] MEDS: PANTOPRAZOLE (EC) 40 MG TAB PO SCH (08:23)
[2018-11-14] MEDS: LOSARTAN 50 MG TAB PO SCH (08:23)
[2018-11-14] MEDS: CYCLOBENZAPRINE 10 MG TAB PO SCH ×2 (08:23→12:50)
[2018-11-14] MEDS ORDERED: DEXAMETHASONE 2 MG TAB PO SCH (09:00)
[2018-11-14 14:07] VITALS: BP 134/72; PULSE 79; RESP 18
--- NOTE | 2018-11-14 14:34 | PDOCDIS ---
Discharge Instructions CONDITION [id number] Patient Condition: [id number] Stable HOME CARE INSTRUCTIONS: [id number] Diet Instructions: [id number] Regular ACTIVITY: [id number] Activity Restrictions: [id number] Slowly Increase Activity Rest between Activity Avoid heavy lifting Do not Drive Do not operate Machinery Do not operate Power Tool Avoid Heavy Housework [id number] Bathing Restrictions: [id number] Sponge Bath FOLLOW UP/APPOINTMENTS Follow-up Plan FU with PMD X 1 WEEK FU with neurosx as recommended call 911 or go to the nearest hospital if symptoms get worse Patient verbalized understanding dc instructions dw staff JOSIAH TRINIDAD November 14, 2018 14:34
--- NOTE | 2018-11-14 16:16 | DS ---
Date/Time of Note Date/Time of Note DATE: 11/14/18 TIME: 16:15 Discharge Summary Admission/Discharge Info Admit Date/Time November 04, 2018 at 12:30 Discharge Date/Time Patient Condition: Stable Home Meds Reported Medications Amlodipine Besylate* (Norvasc*) 10 Mg Tablet, 10 MG PO DAILY, TAB 09/23/17 Metoprolol Succinate* (Toprol XL*) 100 Mg Tab.sr.24h, 100 MG PO QAM, #30 TAB 09/23/17 Losartan Potassium* (Cozaar*) 100 Mg Tablet, 100 MG PO QAM, #30 TAB 18 Pantoprazole* (Protonix*) 40 Mg Tablet.dr, 40 MG PO DAILY, TAB 09/23/17 Atorvastatin* (Atorvastatin*) 80 Mg Tablet, 80 MG PO QHS, #30 TAB 09/23/17 Discontinued Reported Medications Hydrocodone/Acetaminophen ([place] 7.5-325 Tablet) 1 Each Tablet, 1-2 EACH PO Q6 PRN for PAIN, TAB 11/04/18 Follow-up Plan FU with PMD X 1 WEEK FU with neurosx as recommended call 911 or go to the nearest hospital if symptoms get worse Primary Care Provider Not On Staff Doctor JOSIAH TRINIDAD November 14, 2018 16:16
== END 2018-11-14 15:50 | disposition home or self-care (01) | DRG 460 ==
LOC: SDS 09:46 → EDSTATUS 12:00 → SDS 12:29 → REC 12:30 → MS1 16:36
PROVIDERS: ADMIT Neurological Surgery; ATTEND Neurological Surgery
PROC: 0SG3071 Fusion of Lumbosacral Joint with Autologous Tissue Substitute, Posterior Approach, Posterior Column, Open Approach (ICD-10-PCS; principal; 2018-11-04 12:00)
DX: M43.16 Spondylolisthesis, lumbar region (principal); M48.061 Spinal stenosis, lumbar region without neurogenic claudication; M47.9 Spondylosis, unspecified; I10 Essential (primary) hypertension; E78.5 Hyperlipidemia, unspecified; I25.2 Old myocardial infarction; I25.10 Atherosclerotic heart disease of native coronary artery without angina pectoris; F17.210 Nicotine dependence, cigarettes, uncomplicated; K21.9 Gastro-esophageal reflux disease without esophagitis; G47.33 Obstructive sleep apnea (adult) (pediatric); E66.9 Obesity, unspecified; K59.00 Constipation, unspecified; Z68.36 Body mass index [BMI] 36.0-36.9, adult; Z95.5 Presence of coronary angioplasty implant and graft; Z96.641 Presence of right artificial hip joint
CPT/HCPCS: 72100; 72148; 80048; 80053; 85025; 87086; 97110; 97116; 97161; 97165; 97530; 97535; C1713; C1762; J0690; J1100; J1170; J2175; J2250; J2270; J2370; J2405; J2765; J3010; J7121